=== PATIENT | male | born 1970 | race Caucasian/White ===

== ENCOUNTER 2018-01-24 10:12 | Emergency (ER) | payer BC, OTHER ==
[2018-01-24 10:36] VITALS: RESP 18
[2018-01-24] MEDS ORDERED: HYDROmorphone 1 MG/ML 1 ML SYRINGE IVP STA ×2 (11:09→13:48)
[2018-01-24] MEDS ORDERED: SODIUM CHLORIDE 0.9% 1,000 ML IV STA (11:09)
[2018-01-24] MEDS ORDERED: ONDANSETRON 4 MG/2 ML VIAL IVP STA ×2 (11:09→13:48)
--- NOTE | 2018-01-24 11:12 | ED ---
General Adult HPI - General Chief complaint: Abdominal Pain Stated complaint: abdominal pain; vomiting Time Seen by Provider: 01/24/18 10:30 Source: patient, RN notes reviewed Mode of arrival: ambulatory Limitations: no limitations - History of Present Illness Initial comments: This is a 47-year-old male who presents emergency room complaining of epigastric abdominal pain since 1:00 in the morning. Patient has been vomiting since. Patient remains nauseated. Patient denies any diarrhea. Patient states most of the pain is periumbilical. Patient denies any previous abdominal surgery he has had an inguinal hernia surgery in the past. Patient denies any chest pain difficulty breathing shortest breath per patient denies any fever chills or cough. Patient denies any back pain. Patient denies any dysuria hematuria urinary frequency. - Related Data Home Medications Medication Instructions Recorded Confirmed Albuterol Sulfate [Proair Hfa] 1 - 2 puff INHALATION RT-Q6H PRN 04/04/17 Budesonide/Formoterol Fumarate 2 puff INHALATION RT-BID 04/04/17 04/04/17 [Symbicort 160-4.5 Mcg Inhaler] Menthol [Biofreeze] 1 applic TOPICAL QID PRN 04/04/17 04/04/17 Previous Rx's Medication Instructions Recorded HYDROcodone/APAP 5-325MG [[place] 1 tab PO Q6HR PRN #20 tab 04/04/17 5-325] SILVER sulfADIAZINE Cream 1 applic TOPICAL BID #1 tub 04/04/17 [Silvadene 1% Cream] Ondansetron Odt [Zofran Odt] 4 mg PO Q8HR PRN #10 tab 01/24/18 Allergies Allergy/AdvReac Type Severity Reaction Status Date / Time No Known Allergies Allergy Verified 01/24/18 10:36 Review of Systems ROS Statement: Those systems with pertinent positive or pertinent negative responses have been documented in the HPI. ROS Other: All systems not noted in ROS Statement are negative. Past Medical History Past Medical History: Asthma History of Any Multi-Drug Resistant Organisms: None Reported Additional Past Surgical History / Comment(s): left shoulder and knee Past Psychological History: No Psychological Hx Reported Smoking Status: Never smoker Past Alcohol Use History: None Reported Past Drug Use History: None Reported General Exam - General Exam Comments Initial Comments: GENERAL: Patient is well-developed and well-nourished. Patient is nontoxic and well- hydrated and is in moderate distress. ENT: Neck is soft and supple. No significant lymphadenopathy is noted. Oropharynx is clear. Moist mucous membranes. Neck has full range of motion without eliciting any pain. EYES: The sclera were anicteric and conjunctiva were pink and moist. Extraocular movements were intact and pupils were equal round and reactive to light. Eyelids were unremarkable. PULMONARY: Unlabored respirations. Good breath sounds bilaterally. No audible rales rhonchi or wheezing was noted. CARDIOVASCULAR: There is a regular rate and rhythm without any murmurs gallops or rubs. ABDOMEN: Patient has some moderate pain to palpation just superior and to the left of the umbilicus. Patient does have an umbilical hernia which is nontender. No palpable organomegaly was noted. There is no palpable pulsatile mass. SKIN: Skin is clear with no lesions or rashes and otherwise unremarkable. NEUROLOGIC: Patient is alert and oriented x3. Cranial nerves II through XII are grossly intact. Motor and sensory are also intact. Normal speech, volume and content. Symmetrical smile. MUSCULOSKELETAL: Normal extremities with adequate strength and full range of motion. No lower extremity swelling or edema. No calf tenderness. LYMPHATICS: No significant lymphadenopathy is noted PSYCHIATRIC: Normal psychiatric evaluation. Limitations: no limitations Course Vital Signs 01/24/18 01/24/18 10:34 13:47 Temperature 98.2 F 97.6 F Pulse Rate 67 83 Respiratory 18 18 Rate Blood Pressure 192/101 205/93 O2 Sat by Pulse 96 96 Oximetry Medical Decision Making - Medical Decision Making EKG shows normal sinus rhythm at 80 bpm DE interval is on a 48 QRSs 80 QT interval 380 QTC is 447. Patient's EKG shows no ST segment elevation or depression or T wave abnormalities are noted. CT showed no acute abnormality. I went back into reevaluate the patient his abdominal pain was improved and he was no longer nauseated. - Lab Data Result diagrams: 01/24/18 11:31 01/24/18 11:31 Lab Results 01/24/18 01/24/18 01/24/18 Range/Units 11:31 11:31 11:31 WBC 12.0 H (3.8-10.6) k/uL RBC 5.49 (4.30-5.90) m/uL Hgb 17.0 (13.0-17.5) gm/dL Hct 49.2 (39.0-53.0) % MCV 89.7 (80.0-100.0) fL MCH 30.9 (25.0-35.0) pg MCHC 34.5 (31.0-37.0) g/dL RDW 13.4 (11.5-15.5) % Plt Count 340 (150-450) k/uL Neutrophils % 90 % Lymphocytes % 4 % Monocytes % 4 % Eosinophils % 1 % Basophils % 0 % Neutrophils # 10.8 H (1.3-7.7) k/uL Lymphocytes # 0.5 L (1.0-4.8) k/uL Monocytes # 0.4 (0-1.0) k/uL Eosinophils # 0.1 (0-0.7) k/uL Basophils # 0.0 (0-0.2) k/uL Sodium 140 (137-145) mmol/L Potassium 4.3 (3.5-5.1) mmol/L Chloride 102 (98-107) mmol/L Carbon Dioxide 26 (22-30) mmol/L Anion Gap 12 mmol/L BUN 20 (9-20) mg/dL Creatinine 0.67 (0.66-1.25) mg/dL Est GFR (CKD-EPI)AfAm >90 (>60 ml/min/1.73 sqM) Est GFR (CKD-EPI)NonAf >90 (>60 ml/min/1.73 sqM) Glucose 137 H (74-99) mg/dL Plasma Lactic Acid Blayne 1.1 (0.7-2.0) mmol/L Calcium 9.9 (8.4-10.2) mg/dL Total Bilirubin 1.1 (0.2-1.3) mg/dL AST 32 (17-59) U/L ALT 49 (21-72) U/L Alkaline Phosphatase 80 (38-126) U/L Total Protein 7.7 (6.3-8.2) g/dL Albumin 4.6 (3.5-5.0) g/dL Amylase 47 (30-110) U/L Lipase 27 (23-300) U/L Disposition Clinical Impression: Abdominal pain, Acute vomiting, Hypertension Disposition: HOME SELF-CARE Condition: Good Instructions: Abdominal Pain (ED), Hypertension (ED) Additional Instructions: Patient should follow-up with his primary medical care doctor for possible hypertension Patient should not take anymore NSAIDs. Prescriptions: Ondansetron Odt [Zofran Odt] 4 mg PO Q8HR PRN #10 tab PRN Reason: Nausea Is patient prescribed a controlled substance at d/c from ED?: No Referrals: Michael Cline DO [Primary Care Provider] - 1-2 days Time of Disposition: 13:33
[2018-01-24 11:42] LABS: Basophils % (A) 0 %; Eosinophils # (A) 0.1 k/uL (0-0.7); Eosinophils % (A) 1 %; HCT 49.2 % (39.0-53.0); Lymphocytes # (A) 0.5 k/uL (1.0-4.8); Lymphocytes % (A) 4 %; MCH 30.9 pg (25.0-35.0); MCHC 34.5 g/dL (31.0-37.0); MCV 89.7 fL (80.0-100.0); Mean Platelet Volume 6.7; Monocytes # (A) 0.4 k/uL (0-1.0); Monocytes % (A) 4 %; Neutrophils # (A) 10.8 k/uL (1.3-7.7); Neutrophils % (A) 90 %; Platelet Count 340 k/uL (150-450); RBC 5.49 m/uL (4.30-5.90); RDW 13.4 % (11.5-15.5)
[2018-01-24 11:56] LABS: ALT 49 U/L (21-72); AST 32 U/L (17-59); Albumin 4.6 g/dL (3.5-5.0); Alkaline Phosphatase 80 U/L (38-126); Amylase 47 U/L (30-110); Anion Gap 12 mmol/L; Blood Urea Nitrogen 20 mg/dL (9-20); Calcium 9.9 mg/dL (8.4-10.2); Carbon Dioxide 26 mmol/L (22-30); Chloride 102 mmol/L (98-107); Glucose 137 mg/dL (74-99); Lipase 27 U/L (23-300); Potassium 4.3 mmol/L (3.5-5.1); Sodium 140 mmol/L (137-145); Total Bilirubin 1.1 mg/dL (0.2-1.3); Total Protein 7.7 g/dL (6.3-8.2)
--- NOTE | 2018-01-24 12:45 | CT ---
EXAMINATION TYPE: CT abdomen pelvis w con DATE OF EXAM: 01/24/2018 REFERENCE: Previous study dated 04/15/2011. HISTORY: abdominal pain HISTORY: upper abdominal pain CT DLP: 2342.3 mGy Automated exposure control for dose reduction was used. TECHNIQUE: Helical acquisition through the abdomen and pelvis was obtained following the oral ingesti on of without Oral Contrast and following intravenous administration of 100mL mL of Isovue 300. The d beba was reformatted in axial, coronal and sagittal projections. FINDINGS: There is partially calcified 1.5 cm nodule in the lateral basal segment of the left lower lobe, best seen on image 8. This, however, was not visualized on the previous study. There is a partial eventration of the right hemidiaphragm. There is no evidence of pleural or pericar dial fluid. The heart is upper limits of normal in size. Within the abdomen, the liver is upper limits of normal in size and 18 cm. There is decreased attenua tion and may be fatty infiltrated. The spleen and gallbladder are normal. Both adrenal glands are normal. The pancreas is unremarkable. Both kidneys demonstrate function and appear morphologically normal. There is no significant retroperitoneal, iliac or inguinal adenopathy. The bladder is unremarkable. The colon is largely collapsed. This makes assessment of colonic wall thickening difficult. The appen sydnee is normal. Small bowel loops are normal caliber. There is a periumbilical hernia containing fat only with a mouth measuring 1.5 cm. There is no free fluid and no free air. There is a stable. Sclerotic focus in the left femoral head. This likely represents a bone island. Th ere is a bilateral spondylolysis at L5 with a grade 1 bordering on grade 2 spondylolisthesis of L5 on S1. This was present previously. No bony destructive lesion is seen. IMPRESSION: 1. COLLAPSE OF MOST OF THE COLON MAKING ASSESSMENT OF BOWEL WALL THICKENING DIFFICULT. PLEASE CORRELA TE TO EXCLUDE COLITIS. 2. PARTIALLY CALCIFIED PULMONARY NODULE IN THE LEFT LIKELY REPRESENTS A GRANULOMA. 3. MILD HEPATOMEGALY AND FATTY INFILTRATION OF THE LIVER. 4. PERIUMBILICAL HERNIA CONTAINING FAT ONLY WITH A MOUTH MEASURING 1.5 CM. 5. BILATERAL LYSIS AT L5 WITH A GRADE 1, BORDERING ON GRADE 2 SPONDYLOLISTHESIS OF L5 ON S1.
[2018-01-24] MEDS ORDERED: hydrALAZINE HCL 20 MG/ML 1 ML VIAL IVP STA (13:47)
[2018-01-24 13:48] VITALS: TEMP 97.6
[2018-01-24 14:14] VITALS: BP 158/75; PULSE 88
== END 2018-01-24 14:25 | disposition home or self-care (01) ==
LOC: EC 10:12
DX: R10.33 Periumbilical pain (principal); R11.10 Vomiting, unspecified; I10 Essential (primary) hypertension; J45.909 Unspecified asthma, uncomplicated; Z79.51 Long term (current) use of inhaled steroids; Z98.890 Other specified postprocedural states
CPT/HCPCS: 36415; 93005; 80053; 82150; 83605; 83690; 85025; 74177; 99284; 96374; 96375 ×2; 96376 ×2; 96361 ×2; J0360; J2405; J1170; Q9967

== ENCOUNTER → 2018-06-09 | Outpatient (CLI) | payer SELFPAY ==
--- NOTE | 2018-06-09 15:04 | XR ---
EXAMINATION TYPE: XR Hip Complete RT DATE OF EXAM: 06/09/2018 COMPARISON: NONE HISTORY: 47 year-old male right hip pain TECHNIQUE: 2 views FINDINGS: End-stage degenerative change of the right hip with complete loss of superolateral joint space, bone- on-bone articulation, subchondral sclerosis, cystic change, and marginal spurring with mild bony stu deling of the superior femoral head. No acute fracture or dislocation seen. IMPRESSION: End-stage right hip.
== END | disposition home or self-care (01) ==
LOC: RADXRYALE 11:46
PROVIDERS: ATTEND Family Medicine
DX: M25.551 Pain in right hip (principal)
CPT/HCPCS: 73502

== ENCOUNTER → 2018-09-14 | Outpatient (CLI) | payer OTHER ==
--- NOTE | 2018-09-15 11:10 | ECHOF ---
Referral Reason:R60.9 Edema, R06.02 Shortness of breath MEASUREMENTS -------- HEIGHT: 170.2 cm WEIGHT: 149.7 kg BP: IVSd: 1.8 cm (0.6 - 1.1) LVIDd: 3.1 cm (3.9 - 5.3) LVPWd: 2.0 cm (0.6 - 1.1) IVSs: 2.2 cm LVIDs: 1.8 cm LVPWs: 2.0 cm LAESV Index (A-L): 18.87 ml/m Ao Diam: 3.2 cm (2.0 - 3.7) AV Cusp: 1.9 cm (1.5 - 2.6) LA Diam: 3.6 cm (2.7 - 3.8) MV EXCURSION: 16.226 mm (> 18.000) MV EF SLOPE: 50 mm/s (70 - 150) EPSS: 0.3 cm MV E Jw: 0.93 m/s MV DecT: 223 ms MV A Jw: 0.65 m/s MV E/A Ratio: 1.43 RAP: 5.00 mmHg RVSP: 11.68 mmHg FINDINGS -------- Sinus rhythm. This was a technically adequate study. The left ventricular size is normal. There is severe concentric left ventricular hypertrophy. Ove rall left ventricular systolic function is normal with, an EF between 55 - 60 %. The right ventricle is normal in size. Normal LA size by volume 22+/-6 ml/m2. The right atrial size is normal. The aortic valve is trileaflet, and appears structurally normal. No aortic stenosis or regurgitation. There is trace mitral regurgitation. Trace tricuspid regurgitation present. The right ventricular systolic pressure, as measured by Dopp ler, is 11.68mmHg. There is no pulmonic regurgitation present. The aortic root size is normal. IVC Not well visulized. There is a trivial pericardial effusion present. CONCLUSIONS -------- 1. Sinus rhythm. 2. This was a technically adequate study. 3. The left ventricular size is normal. 4. There is severe concentric left ventricular hypertrophy. 5. Overall left ventricular systolic function is normal with, an EF between 55 - 60 %. 6. The right ventricle is normal in size. 7. Normal LA size by volume 22+/-6 ml/m2. 8. The right atrial size is normal. 9. The aortic valve is trileaflet, and appears structurally normal. No aortic stenosis or regurgitati on. 10. There is trace mitral regurgitation. 11. Trace tricuspid regurgitation present. 12. The right ventricular systolic pressure, as measured by Doppler, is 11.68mmHg. 13. There is no pulmonic regurgitation present. 14. The aortic root size is normal. 15. IVC Not well visulized. GRINDER SETUP OPERATOR: Janet Mcneil RDCS
== END | disposition home or self-care (01) ==
LOC: RADECHMAIN 14:49
PROVIDERS: ATTEND Family Medicine
DX: I51.7 Cardiomegaly (principal)
CPT/HCPCS: 93306

== ENCOUNTER → 2018-10-20 | Outpatient (CLI) | payer OTHER ==
[2018-10-20 15:31] LABS: HCT 49.5 % (39.0-53.0); HGB 16.9 gm/dL (13.0-17.5); MCH 31.5 pg (25.0-35.0); MCHC 34.1 g/dL (31.0-37.0); MCV 92.3 fL (80.0-100.0); Mean Platelet Volume 7.5; Platelet Count 323 k/uL (150-450); RBC 5.36 m/uL (4.30-5.90)
[2018-10-20 15:46] LABS: Anion Gap 13 mmol/L; Blood Urea Nitrogen 11 mg/dL (9-20); Carbon Dioxide 26 mmol/L (22-30); Chloride 98 mmol/L (98-107); Potassium 3.9 mmol/L (3.5-5.1); Sodium 137 mmol/L (137-145)
[2018-10-20 15:51] LABS: INR 0.9 (<1.2); Partial Thromboplastin Time 22.4 sec (22.0-30.0); Prothrombin Time 10.2 sec (9.0-12.0)
== END | disposition home or self-care (01) ==
LOC: LABWHC1 14:16
PROVIDERS: ATTEND Orthopaedic Surgery Hand Surgery
DX: Z01.812 Encounter for preprocedural laboratory examination (principal); M16.11 Unilateral primary osteoarthritis, right hip
CPT/HCPCS: 36415; 80051; 82565; 84520; 85027; 85610; 85730; 87070

== ENCOUNTER 2018-10-27 10:43 | Inpatient (IN) | payer BC, OTHER ==
[~2018-10-27 10:43] MED LIST: ACETAMINOPHEN TAB 500 MG TAB PO ONE; DEXAMETHASONE SOD PHOSPHATE 10 MG/ML 1 ML VIAL IV ONE; HYDROmorphone 0.5 MG/0.5 ML SYRINGE IVP PRN; LACTATED RINGERS 1,000 ML IV SCH; MELOXICAM 7.5 MG TAB PO ONE; ONDANSETRON 4 MG/2 ML VIAL IVP ONE; ROPIVACAINE 246.25 MG, EPINEPHrine 0.5 MG, KETOROLAC 30 MG, WATER FOR INJECTION,STERILE... MISCELLANE ONE; ROPIVACAINE 246.25 MG, EPINEPHrine 0.5 MG, KETOROLAC 30 MG, cloNIDine HCL/PF 80 MCG, WA... MISCELLANE ONE; SCOPOLAMINE 1.5MG/72HR PATCH TRANSDERM ONE; TRANEXAMIC ACID 1,000 MG in SODIUM CHLORIDE 0.9% 100 ML IVPB ONE; ceFAZolin 3 GM in SODIUM CHLORIDE 0.9% 100 ML IVPB ONE
[2018-10-27] MEDS ORDERED: LIDOCAINE 1% 20 ML VIAL (10MG/ML) FOR IV START INTRADERMA ONE (11:40)
[2018-10-27] MEDS ORDERED: HYDROmorphone 1 MG/ML 1 ML SYRINGE IVP PRN (12:51)
[2018-10-27] MEDS ORDERED: MAGNESIUM HYDROXIDE 2,400 MG/10 ML CUP PO PRN (12:51)
[2018-10-27] MEDS ORDERED: DIAZEPAM 5 MG TAB PO PRN (12:51)
[2018-10-27] MEDS ORDERED: NALOXONE 0.4 MG/ML 1 ML VIAL IV PRN (12:51)
[2018-10-27] MEDS ORDERED: HYDROmorphone 0.5 MG/0.5 ML SYRINGE IVP PRN ×2 (12:51)
[2018-10-27] MEDS ORDERED: HYDROcodone/APAP 5-325MG 1 EACH TAB PO PRN (12:51)
[2018-10-27] MEDS ORDERED: KETAMINE 10 MG/ML 20 ML VIAL ONE (13:08)
[2018-10-27] MEDS ORDERED: fentaNYL (PF) 50 MCG/ML 2 ML AMP ONE (13:08)
[2018-10-27] MEDS ORDERED: SODIUM CHLORIDE 0.9% 100 ML BAG ONE (13:08)
[2018-10-27] MEDS ORDERED: MIDAZOLAM 2 MG/2 ML VIAL ONE (13:08)
[2018-10-27] MEDS ORDERED: TRANEXAMIC ACID 1,000 MG/10 ML VIAL ONE (13:08)
[2018-10-27] MEDS ORDERED: ceFAZolin 3,000 MG in SODIUM CHLORIDE 0.9% IRRIGATIO 3,000 ML IRRIGATION ONE (13:47)
--- NOTE | 2018-10-27 14:58 | P.OP ---
Date of Procedure: 10/27/18 Preoperative Diagnosis: Severe osteoarthritis right hip Postoperative Diagnosis: Severe osteoarthritis right hip Procedure(s) Performed: Right total hip arthroplasty with a direct anterior approach Implants: Amador [employer] nephew Polarstem size 3 standard [employer]hew R3, 3 hole acetabular shell, 52 mm [employer]hew reflection 6.5 mm cancellus screw, 20 mm 2 [employer] R3, XLPE 20 acetabular liner [employer]hew Oxinium femoral head 36 m, +8 All components were press-fit. The articulation is Oxinium on polyethylene. Anesthesia: spinal Surgeon: Michael Trinidad Nat Instructor #1: Perri Grace Estimated Blood Loss (ml): 500 (194 mL returned with Cell Saver) Pathology: other (Femoral head) Condition: stable Disposition: PACU Indications for Procedure: After failure of conservative treatment we discussed the surgical and nonsurgical treatment options at length. Patient wishes to proceed with a total hip arthroplasty with a direct anterior approach. Complications specific to this procedure were discussed at length, including but not limited to infection, leg length discrepancy, dislocation, and nerve injury. Patient is aware of all these complications and informed consent was obtained Operative Findings: The operative findings are consistent with severe osteoarthritis of the right hip Description of Procedure: Patient was seen and evaluated in the preoperative area, consent was reviewed, and the surgical site was marked with a skin marker. Patient was then brought to the operating room and given prophylactic antibiotics intravenously. 1 g of Tranexamic acid was also given. A spinal anesthetic was administered by the anesthesia department. The patient was then placed on the [place] table with the bony prominences well-padded. The hip area was then prepped and draped in usual sterile fashion. A universal timeout was then performed, which confirmed the patient's name, surgical site, ALLERGIES, and procedure being performed. Next the incision site was located at 1 cm distal and 1 cm lateral to the anterior superior iliac spine. The skin and subcutaneous tissues were sharply incised. Incision was carefully dissected down to the fascia overlying the tensor fascia evans muscle. This fascia was then incised in line with the incision. Next, using blunt finger dissection, the tensor fascia evans muscle was dissected off its investing fascia. The muscle was then carefully retracted laterally with a cobra retractor over the lateral neck of the femur. Next, the circumflex vessels were identified and cauterized using the AquaMantis device. The anterior hip capsule was then exposed. The capsule was then opened and an inverted T fashion. Cobra retractors were then placed intracapsularly. The proximal femur was then visualized. The femoral neck was then osteotomized appropriate level above the lesser trochanter. Small amount of traction was placed with the [place] table. A small wedge of bone was then removed from the remaining femoral head. Next, using a corkscrew femoral head was easily removed from the acetabulum. On gross visual inspection, the femoral head had complete loss of articular cartilage in m ultiple periarticular osteophytes. Attention was then turned to the acetabulum. the acetabulum was exposed and any remaining labrum was excised. Sequential reaming of the acetabulum was performed using fluoroscopic guidance. When the appropriate size was reached, a trial was then placed. The position and fit of the trial was checked with fluoroscopy. The trial was then removed. Then, using fluoroscopic guidance, the final implant was impacted at 20 of anteversion and 40 of abduction, and fully seated in the acetabulum. 2 screws were then placed in the acetabulum. Again fluoroscopy was used to check position of the screws. Next, the liner was then impacted, with a 20 elevated liner located in the anterior superior quadrant. Component locking was confirmed. Attention was then directed to the femur. With the aid of the [place] table, the femur was externally rotated to approximately 130, extended, and abducted under the opposite leg. A side hook was then placed under the proximal femur, and the side hook elevator was used to elevate the proximal femur. Retractors were then placed. A capsular release was performed, as well as a release of the conjoined tendon, which afforded excellent visualization of the proximal femur. Next, a box osteotome was used to lateralize the proximal femur. A fuel handler was then used to locate the femoral canal. Sequential broaching was then performed with appropriate size which afforded excellent fixation in the proximal femur. A trial was then placed with appropriate head and neck, and the hip was gently reduced with the aid of the [place] table. Fluoroscopy was then used to check position of the components, as well as to ensure equal leg lengths. The hip was then gently dislocated and the trials were then removed. Final implants were then impacted and the hip was again reduced. Final fluoroscopic x-rays confirmed that the components were in anatomic position, as well as equal leg lengths. The hip was also taken through range of motion, and found to be stable. The hip was then copiously irrigated with antibiotic solution with pulsatile lavage. The hip was then irrigated with Irrisept solution. The soft tissues were then injected with a ropivacaine solution, which consisted of 246.25 mg of ropivacaine, 0.5 mg of epinephrine, 30 mg of Toradol, 80 g of clonidine, and 48.45 mL of sterile water, for a total of 100 mL of fluid injected. A second dose of 1 g of Tranexamic acid was also given. the fascia was then closed with 2-0 strata fix suture. The subcutaneous tissue was closed with 3-0 Vicryl. The subcuticular tissue was closed with 3-0 strata fix suture. The skin was then closed with Dermabond glue and a sterile silver dressing. The patient was then transferred to the recovery room in stable c ondition. The entry level administrative assistant SONDRA Watkins was required due to the complexity of surgery, and the need for skilled surgical aide for positioning, draping, exposure, retraction, and closure of the wound.
[2018-10-27] MEDS ORDERED: LACTATED RINGERS 1,000 ML IV ONE ×3 (15:10→16:43)
--- NOTE | 2018-10-27 15:34 | XR ---
EXAMINATION TYPE: XR Hip Limited RT, XR Hip Limited RT DATE OF EXAM: 10/27/2018 CLINICAL HISTORY: Right anterior hip arthroplasty. Fluoroscopic documentation. TECHNIQUE: Fluoroscopy. COMPARISON: None. FINDINGS: Fluoroscopic guidance was provided during procedure performed by Dr. Trinidad. A total of 1 minute and 11 seconds seconds of fluoroscopic time was utilized during the procedure and 2 spot im ages was acquired. IMPRESSION: As Above.
[2018-10-27] MEDS ORDERED: ceFAZolin 3 GM in SODIUM CHLORIDE 0.9% 100 ML IVPB SCH (16:00)
[2018-10-27 18:45] VITALS: BMI 52.4
[2018-10-27] MEDS: SODIUM CHLORIDE 0.9% 1,000 ML IV SCH (18:57)
[2018-10-27] MEDS: HYDROcodone/APAP 5-325MG 1 EACH TAB PO PRN (19:00)
[2018-10-27] MEDS: hydrOXYzine PAMOATE 25 MG CAP PO PRN (19:02)
[2018-10-27] MEDS ORDERED: SENNOSIDES-DOCUSATE SODIUM 1 EACH TAB PO SCH (21:00)
[2018-10-27] MEDS: ASPIRIN 325 MG TAB PO SCH (21:19)
[2018-10-27] MEDS: ceFAZolin 3 GM in SODIUM CHLORIDE 0.9% 100 ML IVPB SCH (21:20)
[2018-10-28] MEDS: SODIUM CHLORIDE 0.9% 1,000 ML IV SCH (04:33)
[2018-10-28] MEDS: ceFAZolin 3 GM in SODIUM CHLORIDE 0.9% 100 ML IVPB SCH (06:19)
[2018-10-28] MEDS: hydrOXYzine PAMOATE 25 MG CAP PO PRN (06:21)
[2018-10-28] MEDS: HYDROcodone/APAP 5-325MG 1 EACH TAB PO PRN (06:22)
[2018-10-28 07:27] VITALS: BP 126/72; PULSE 82; RESP 16; TEMP 97.7
--- NOTE | 2018-10-28 08:22 | P.DS ---
Providers Date of admission: 10/27/18 10:43 Expected date of discharge: 10/28/18 Attending physician: Michael Trinidad Consults: 10/27/18 12:51 Consult Physician Routine Consulting Provider: Ryan Berry Consult Reason/Comments: medical management Do you want consulting provider notified?: Yes Primary care physician: Michael Cline - Discharge Diagnosis(es) (1) Osteoarthritis of right hip Current Visit: Yes Status: Acute (2) S/P total hip arthroplasty Current Visit: Yes Status: Acute Hospital Course: This is a 48-year-old male with known history of degenerative arthritis of the right hip. The patient presents for evaluation. After discussion and consideration patient elects to proceed with total hip arthroplasty. The patient is seen preoperatively by Dr. Trinidad and medically cleared for surgery by their primary care physician. Patient is admitted to [facility] on 10/27/2089 for total hip arthroplasty. The procedures performed without complication or sequelae. The patient is doing well postoperatively. Labs and vital signs are stable on day of discharge. On day of discharge patient's hip incision is healing well. There is minimal erythema. There is no drainage noted at this time. There is minimal soft tissue swelling to the hip and thigh. Patient has full foot and ankle motion without difficulty or pain. Calf is soft and nontender to palpation. Neurovascular status to the right lower extremity is intact. Patient is discharged home in good condition. Opioid start talking form is reviewed and signed at patient bedside. Please see med rec for accurate list of home medications. Plan - Discharge Summary Discharge Rx Participant: Yes New Discharge Prescriptions: New Aspirin 325 mg PO BID #60 tab HYDROcodone/APAP 5-325MG [[place] 5-325] 1 - 2 tab PO Q6HR PRN #56 tab PRN Reason: Pain Sennosides [Senokot] 1 tab PO BID #60 tablet No Action Albuterol Sulfate [Proair Hfa] 1 - 2 puff INHALATION RT-Q6H PRN PRN Reason: Shortness Of Breath Budesonide/Formoterol Fumarate [Symbicort 160-4.5 Mcg Inhaler] 2 puff INHALATION RT-BID Phentermine HCl [Adipex-P] 37.5 mg PO DAILY PARoxetine [Paxil] 20 mg PO DAILY Losartan [Cozaar] 50 mg PO QAM traMADol HCL [Ultram] 50 mg PO Q6HR Naproxen 500 mg PO BID Discharge Medication List Albuterol Sulfate [Proair Hfa] 1 - 2 puff INHALATION RT-Q6H PRN 04/04/17 [History] Budesonide/Formoterol Fumarate [Symbicort 160-4.5 Mcg Inhaler] 2 puff INHALATION RT-BID 04/04/17 [History] Losartan [Cozaar] 50 mg PO QAM 10/21/18 [History] Naproxen 500 mg PO BID 10/21/18 [History] PARoxetine [Paxil] 20 mg PO DAILY 10/21/18 [History] Phentermine HCl [Adipex-P] 37.5 mg PO DAILY 10/21/18 [History] traMADol HCL [Ultram] 50 mg PO Q6HR 10/21/18 [History] Aspirin 325 mg PO BID #60 tab 10/28/18 [Rx] HYDROcodone/APAP 5-325MG [[place] 5-325] 1 - 2 tab PO Q6HR PRN #56 tab 10/28/18 [Rx] Sennosides [Senokot] 1 tab PO BID #60 tablet 10/28/18 [Rx] Follow up Appointment(s)/Referral(s): Michael Trinidad DO [Doctor of Osteopathic Medicine] - 2 Weeks Activity/Diet/Wound Care/Special Instructions: Weightbearing as tolerated with walker. Leave dressing intact. Dressing may be removed by home care nurse or by patient in 10 days. May shower with dressing on. Please follow-up with [facility] in 2 weeks and call with any questions or concerns, . Discharge Disposition: HOME WITH HOME HEALTH SERVICES
[2018-10-28] MEDS ORDERED: MELOXICAM 7.5 MG TAB PO SCH (09:00)
[2018-10-28] MEDS: ASPIRIN 325 MG TAB PO SCH (09:36)
[2018-10-28 09:53] LABS: Basophils % (A) 0 %; Eosinophils # (A) 0.1 k/uL (0-0.7); Eosinophils % (A) 1 %; HCT 44.5 % (39.0-53.0); Lymphocytes # (A) 1.2 k/uL (1.0-4.8); Lymphocytes % (A) 9 %; MCH 29.5 pg (25.0-35.0); MCV 95.2 fL (80.0-100.0); Mean Platelet Volume 7.4; Monocytes # (A) 0.9 k/uL (0-1.0); Monocytes % (A) 6 %; Neutrophils # (A) 11.1 k/uL (1.3-7.7); Neutrophils % (A) 83 %; Platelet Count 415 k/uL (150-450); RBC 4.67 m/uL (4.30-5.90); RDW 13.3 % (11.5-15.5); WBC 13.4 k/uL (3.8-10.6)
[2018-10-28 09:55] LABS: HGB 13.8 gm/dL (13.0-17.5)
--- NOTE | 2018-10-28 11:16 | P.CONS ---
History of Present Illness - History of Present Illness This is a pleasant 48 years old male with past medical history of asthma, deg enerative joint disease. Presents for elective right total hip arthroplasty. Patient had the surgery yesterday, today is postoperative day #1. Patient is doing well. He denies chest pain or dyspnea. No abdominal pain. No change in urine or bowel habits. His tolerating diet well. Patient is hemodynamically stable. Labs showing WBC of 13.4 K. Labs from 10/20/2018 in the system is reviewed, showing unremarkable BMP and liver enzymes, amylase or lipase. His sugar was mildly elevated was 137., Patient informed about these lab results and asked to follow-up with his PCP and he agrees Medications reviewed, currently was on aspirin 325 mg by mouth twice a day, Valium and opioids, Mobic, Senokot. Review of Systems CONSTITUTIONAL: No fever, no malaise, no fatigue. HEENT: No recent visual problems or hearing problems. Denied any sore throat. CARDIOVASCULAR: No orthopnea, PND, no palpitations, no syncope. PULMONARY: No shortness of breath, no cough, no hemoptysis. GASTROINTESTINAL: No diarrhea, no nausea, no vomiting, no abdominal pain. Normoactive bowel sounds. NEUROLOGICAL: No headaches, no weakness, no numbness. HEMATOLOGICAL: Denies any bleeding or petechiae. GENITOURINARY: Denies any burning micturition, frequency, or urgency. MUSCULOSKELETAL/RHEUMATOLOGICAL: Denies any joint pain, swelling, or any muscle pain. ENDOCRINE: Denies any polyuria or polydipsia. Past Medical History Past Medical History: Asthma History of Any Multi-Drug Resistant Organisms: None Reported Past Surgical History: Orthopedic Surgery Additional Past Surgical History / Comment(s): left shoulder and knee, ANTERIOR RIGHT HIP ARTHROPLASTY 10-27-2018 Past Anesthesia/Blood Transfusion Reactions: Motion Sickness Past Psychological History: No Psychological Hx Reported Smoking Status: Never smoker Past Alcohol Use History: None Reported Past Drug Use History: None Reported - Past Family History Mother Family Medical History: Cancer Additional Family Medical History / Comment(s): Lymphoma. Medications and Allergies Home Medications Medication Instructions Recorded Confirmed Type Albuterol Sulfate [Proair Hfa] 1 - 2 puff INHALATION RT-Q6H PRN 04/04/17 10/27/18 History Budesonide/Formoterol Fumarate 2 puff INHALATION RT-BID 04/04/17 10/27/18 History [Symbicort 160-4.5 Mcg Inhaler] Losartan [Cozaar] 50 mg PO QAM 10/21/18 10/27/18 History Naproxen 500 mg PO BID 10/21/18 10/27/18 History PARoxetine [Paxil] 20 mg PO DAILY 10/21/18 10/27/18 History Phentermine HCl [Adipex-P] 37.5 mg PO DAILY 10/21/18 10/27/18 History traMADol HCL [Ultram] 50 mg PO Q6HR 10/21/18 10/27/18 History Aspirin 325 mg PO BID #60 tab 10/28/18 Rx HYDROcodone/APAP 5-325MG [[place] 1 - 2 tab PO Q6HR PRN #56 tab 10/28/18 Rx 5-325] Sennosides [Senokot] 1 tab PO BID #60 tablet 10/28/18 Rx Allergies Allergy/AdvReac Type Severity Reaction Status Date / Time No Known Allergies Allergy Verified 10/27/18 18:28 Physical Exam Vitals: Vital Signs Temp Pulse Pulse Pulse Resp BP Pulse Ox 10/28/18 07:00 97.7 F 82 16 126/72 91 L 10/28/18 01:35 97.9 F 81 17 118/73 10/27/18 20:23 98.2 F 93 18 117/71 93 L 10/27/18 17:53 80 172/111 93 L 10/27/18 17:38 82 165/88 95 10/27/18 17:23 74 167/107 95 10/27/18 17:08 98.5 F 76 16 131/84 93 L 10/27/18 16:30 78 18 144/77 93 L 10/27/18 16:15 73 16 135/71 92 L 10/27/18 16:02 75 16 140/83 96 10/27/18 15:48 76 18 141/66 94 L 10/27/18 15:33 72 16 123/67 94 L 10/27/18 15:17 97 F L 74 17 118/69 95 10/27/18 11:17 98.0 F 95 20 164/96 95 Intake and Output 10/27/18 10/28/18 10/28/18 22:59 06:59 14:59 Intake Total 1200 1240 Balance 1200 1240 Intake: IV 1100 Intake, IV Titration 700 Amount Sodium Chloride 0.9% 1, 700 000 ml @ 70 mls/hr IV . [id number] [facility] Rx#:[id number] Oral 100 540 Other: # Voids 2 GENERAL: The patient is alert and oriented x3, not in any acute distress. Well developed, well nourished. HEENT: Pupils are round and equally reacting to light. EOMI. No scleral icterus. No conjunctival pallor. Normocephalic, atraumatic. No pharyngeal erythema. No thyromegaly. CARDIOVASCULAR: S1 and S2 present. No murmurs, rubs, or gallops. PULMONARY: Chest is clear to auscultation, no wheezing or crackles. ABDOMEN: Soft, nontender, nondistended, normoactive bowel sounds. No palpable organomegaly. MUSCULOSKELETAL: No joint swelling or deformity. EXTREMITIES: No cyanosis, clubbing, or pedal edema. NEUROLOGICAL: Gross neurological examination did not reveal any focal deficits. SKIN: No rashes. Results CBC & Chem 7: 10/28/18 09:04 Labs: Abnormal Lab Results - Last 24 Hours (Table) 10/28/18 Range/Units 09:04 WBC 13.4 H (3.8-10.6) k/uL Neutrophils # 11.1 H (1.3-7.7) k/uL Assessment and Plan Assessment: Assessment and plan -Degenerative joint disease, status post elective right total hip arthroplasty. Possible management as per the primary team. DVT prophylaxis and main management as per the primary team. Follow up with orthopedic as instructed upon discharge -Leukocytosis. No signs and symptoms of infection. This is most likely reactive. Follow-up as an outpatient -History of asthma, not an active issue - DVT and GI prophylaxis, as per primary team Patient was instructed to follow up with his PCP on the appointment date on 11/06/2018, patient was recommended to check his blood counts including what cell count with his PCP. He verbalized understanding and acceptance. Patient also informed about the appointment date and he agrees with it and said he will follow-up with both his PCP and orthopedic.
== END 2018-10-28 11:37 | disposition home health service (06) | DRG 470 ==
LOC: 2ORMAIN 10:43 → 4SSUR 16:38
PROVIDERS: ADMIT Orthopaedic Surgery; ATTEND Orthopaedic Surgery
PROC: 30233N0 Transfusion of Autologous Red Blood Cells into Peripheral Vein, Percutaneous Approach (ICD-10-PCS; 2018-10-27)
PROC: 0SR906A Replacement of Right Hip Joint with Oxidized Zirconium on Polyethylene Synthetic Substitute, Uncemented, Open Approach (ICD-10-PCS; principal; 2018-10-27 12:35)
DX: M16.11 Unilateral primary osteoarthritis, right hip (principal); Z68.43 Body mass index [BMI] 50.0-59.9, adult; I10 Essential (primary) hypertension; J45.40 Moderate persistent asthma, uncomplicated; E66.01 Morbid (severe) obesity due to excess calories; E78.2 Mixed hyperlipidemia; E29.1 Testicular hypofunction; E53.8 Deficiency of other specified B group vitamins; D72.829 Elevated white blood cell count, unspecified; Z87.891 Personal history of nicotine dependence; Z79.51 Long term (current) use of inhaled steroids; Z79.82 Long term (current) use of aspirin; Z79.899 Other long term (current) drug therapy; Z79.52 Long term (current) use of systemic steroids; Z80.7 Family history of other malignant neoplasms of lymphoid, hematopoietic and related tissues; Z83.3 Family history of diabetes mellitus
CPT/HCPCS: 73501; 85025; 86850; 86891; 86900; 86901; 88300

== ENCOUNTER → 2019-06-22 | Outpatient (CLI) | payer OTHER ==
--- NOTE | 2019-06-22 13:53 | XR ---
EXAMINATION TYPE: XR elbow complete RT DATE OF EXAM: 06/22/2019 CLINICAL HISTORY: Fall injury yesterday with pain. TECHNIQUE: Frontal, lateral and oblique images of the right elbow are obtained. COMPARISON: None FINDINGS: There is no acute fracture/dislocation evident in the right elbow. No abnormal fat pad si gns are seen. Mild to moderate spurring at the ulnohumeral articulation. Overlying clothing material with mild subcutaneous edema along the dorsal surface. IMPRESSION: There is no acute fracture or dislocation in the right elbow.
== END | disposition home or self-care (01) ==
LOC: RADXRYALE 13:31
PROVIDERS: ATTEND Physician Assistant Medical
DX: M25.521 Pain in right elbow (principal); W00.0XXA Fall on same level due to ice and snow, initial encounter

== ENCOUNTER → 2019-06-30 | Outpatient (CLI) | payer OTHER ==
--- NOTE | 2019-06-30 14:38 | XR ---
EXAMINATION TYPE: XR elbow complete RT DATE OF EXAM: 06/30/2019 CLINICAL HISTORY: Right elbow pain after fall last week TECHNIQUE: Frontal, lateral and oblique images of the brain elbow are obtained. COMPARISON: 06/22/2019a FINDINGS: There is a punctate radiopaque density at the location of the expected distal triceps tendo n. There is increasing subcutaneous/soft tissue swelling posterior to the distal humerus. No joint ef fusion is seen. Alignment of the right elbow is maintained. IMPRESSION: Punctate possible avulsion fracture of the triceps insertion. There is increasing soft ti ssue swelling over the dorsal humerus. Musculoskeletal ultrasound could assess for muscular tear/avul jose a or hematoma. Alternatively MRI could be performed.
== END | disposition home or self-care (01) ==
LOC: RADXRYALE 13:33
PROVIDERS: ATTEND Physician Assistant Medical
DX: M79.89 Other specified soft tissue disorders (principal)

== ENCOUNTER → 2020-04-03 | Outpatient (CLI) | payer OTHER ==
--- NOTE | 2020-04-03 11:00 | XR ---
EXAMINATION TYPE: XR chest 2V DATE OF EXAM: 04/03/2020 COMPARISON: Chest CT August 05, 2014. HISTORY: Cardiomegaly and shortness of breath. TECHNIQUE: Frontal and lateral views of the chest are obtained. FINDINGS: There is no new suspicious focal air space opacity, pleural effusion, or pneumothorax seen . The cardiac silhouette size remains enlarged but this is due to prominent right pericardial fat pa d when correlating with CT. There is 1.5 cm left basilar nodule overlying left apex stable from CT ax ial image 39. The osseous structures are intact. IMPRESSION: No acute cardiopulmonary process. No significant change from prior CT.
== END | disposition home or self-care (01) ==
LOC: RADXRYALE 10:14
PROVIDERS: ATTEND Physician Assistant Medical
DX: I51.7 Cardiomegaly (principal); R06.02 Shortness of breath
CPT/HCPCS: 71046

== ENCOUNTER → 2020-06-19 | Outpatient (CLI) | payer OTHER ==
--- NOTE | 2020-06-19 12:29 | XR ---
EXAMINATION TYPE: XR chest 2V DATE OF EXAM: 06/19/2020 COMPARISON: 04/03/2020 HISTORY: 49-year-old male R05, cough TECHNIQUE: Frontal and lateral views FINDINGS: Large cardiac/pericardiac silhouette redemonstrated. Mild interstitial prominence is unchanged. 2.3 c m nodule at the left base may be slightly larger. No consolidation or pleural effusion. IMPRESSION: 1. Known Morgagni hernia enlarging the cardiac silhouette. 2. Left basilar nodule estimated at 2.3 cm appears larger from prior. Contrast-enhanced CT can compar ed to the patient's prior 08/13/2014 exam.
== END | disposition home or self-care (01) ==
LOC: RADXRYALE 10:36
PROVIDERS: ATTEND Family Medicine
DX: R91.1 Solitary pulmonary nodule (principal)
CPT/HCPCS: 71046

== ENCOUNTER → 2020-06-28 | Outpatient (CLI) | payer OTHER ==
--- NOTE | 2020-06-28 15:30 | CT ---
EXAMINATION TYPE: CT chest w con DATE OF EXAM: 06/28/2020 COMPARISON: Chest CT August 05, 2014 HISTORY: SOB and pulmonary nodule. CT DLP: 381.7 mGycm. Automated Exposure Control for Dose Reduction was Utilized. TECHNIQUE: CT scan of the thorax is performed following with IV Contrast, patient injected with 100 mL of Isovue 300. FINDINGS: LUNGS: There is stable in size 1.5 cm partially calcified left basilar nodule seen best coronal image 62 when correlating with 2015 CT axial image 39. Mild to moderate right basilar linear scarring olivia ins present. Patchy areas of reticulation and increased opacity in the right upper lobe periphery cou ld reflect resolving infiltrate, similar increased groundglass opacity central inferior left upper lo be axial image 25 noted. No pleural effusion or pneumothorax seen. MEDIASTINUM: There are no greater than 1 cm hilar or mediastinal lymph nodes. No cardiomegaly or pe ricardial effusion is seen. Mild coronary artery calcification in the LAD distribution. Persistent m ore gagging type hernia seen best sagittal image 60 containing fat and tiny mesenteric vessels causin g the right-sided cardiac silhouette prominence on x-ray. OTHER: Liver diffusely low dense consistent with diffuse fatty infiltration. Slight underlying scolio tic curvature. IMPRESSION: Stable in size 1.5 cm left basilar nodule from 2015 CT is benign. Patchy opacities inferi or upper lungs bilaterally could reflect resolving infectious process less well seen on recent x-ray. No new nodules.
== END | disposition home or self-care (01) ==
LOC: RADCTMAIN 14:29
PROVIDERS: ATTEND Family Medicine
DX: R91.8 Other nonspecific abnormal finding of lung field (principal); R91.1 Solitary pulmonary nodule
CPT/HCPCS: 71260; Q9967

== ENCOUNTER → 2020-07-10 | Outpatient (CLI) | payer OTHER ==
[2020-07-10 16:28] LABS: HCT 45.5 % (39.0-53.0); HGB 15.5 gm/dL (13.0-17.5); MCH 32.7 pg (25.0-35.0); MCHC 34.1 g/dL (31.0-37.0); MCV 96.1 fL (80.0-100.0); Mean Platelet Volume 7.3; Platelet Count 273 k/uL (150-450); RBC 4.73 m/uL (4.30-5.90); RDW 14.1 % (11.5-15.5)
--- NOTE | 2020-07-10 16:34 | CT ---
EXAMINATION TYPE: CT angio chest DATE OF EXAM: 07/10/2020 COMPARISON: 06/28/2020 HISTORY: SOB, recent covid CT DLP: 686 mGycm CONTRAST: CT chest with contrast and 3D reconstruction with MIP imaging is performed with IV Contrast, patient injected with 100 mL of Isovue 370. Contrast-enhanced CT of the chest was performed through the course of the pulmonary arteries with zeinab g and mediastinal window settings submitted. 3D reconstruction with MIP imaging was also performed. PULMONARY ARTERIES: There is poor timing of the contrast bolus limiting evaluation. I do not see evid ence for a large central embolus however second, third and fourth order branches are limited in evalu ation. LUNGS: The lungs are clear and free of infiltrate. No evidence for atelectasis. No pulmonary nodule or mass is detected. No pleural effusion. Left lower lobe granuloma. MEDIASTINUM: Thoracic aorta is of normal caliber,however, evaluation is limited given timing of the contrast bolus. If there is concern for thoracic aortic pathology consider KENIA. Correlate clinicall y . The heart is not enlarged. No evidence for mediastinal mass. No mediastinal lymph nodes greater than 1cm. HILAR STRUCTURES: No evidence for mass. No hilar lymph nodes greater than 1 cm. UPPER ABDOMEN: No significant abnormality is seen. IMPRESSION: 1. There is poor timing of the contrast bolus limiting evaluation. I do not see evidence for a large central embolus however second, third and fourth order branches are limited in evaluation.
[2020-07-10 16:45] LABS: ALT 51 U/L (4-49); AST 49 U/L (17-59); African American GFR (CKD) >90 (>60 ml/min/1.73 sqM); Alkaline Phosphatase 61 U/L (38-126); Anion Gap 9 mmol/L; Blood Urea Nitrogen 12 mg/dL (9-20); Calcium 9.5 mg/dL (8.4-10.2); Carbon Dioxide 27 mmol/L (22-30); Chloride 103 mmol/L (98-107); Glucose 125 mg/dL (74-99); Non-African American GFR(CKD) >90 (>60 ml/min/1.73 sqM); Sodium 139 mmol/L (137-145); Total Bilirubin 1.4 mg/dL (0.2-1.3); Total Protein 6.9 g/dL (6.3-8.2)
[2020-07-10 16:49] LABS: Potassium 4.3 mmol/L (3.5-5.1)
== END | disposition home or self-care (01) ==
LOC: RADCTMAIN 14:39
PROVIDERS: ATTEND Internal Medicine
DX: U07.1 COVID-19 (principal); R06.00 Dyspnea, unspecified; J12.82 Pneumonia due to coronavirus disease 2019
CPT/HCPCS: 85379; 80053; 85027; 71275; 36415; Q9967

== ENCOUNTER → 2020-07-14 | Outpatient (CLI) | payer OTHER ==
--- NOTE | 2020-07-14 14:46 | XR ---
EXAMINATION TYPE: XR chest 2V DATE OF EXAM: 07/14/2020 COMPARISON: 06/19/2020 HISTORY: Chest pain TECHNIQUE: Frontal and lateral views of the chest are obtained. FINDINGS: There is no focal air space opacity. No evidence for pneumothorax. No pleural effusion. Linear atelectasis right midlung zone. The cardiac silhouette size is enlarged unchanged from prior study. The osseous structures are grossly intact. IMPRESSION: 1. No acute cardiopulmonary process.
--- NOTE | 2020-07-14 14:57 | NM ---
EXAMINATION TYPE: NM pul vent and perfuse DATE OF EXAM: 07/14/2020 COMPARISON: NONE HISTORY: R07.89 Chest pain U07.1 COVID-19 TECHNIQUE: Utilizing inhalation of 33 mCi Tc 99m DTPA aerosol and intravenous injection of 4.68 mCi of Tc 99m MAA, ventilation and perfusion images are acquired post injection in multiple projections. FINDINGS: Normal radiotracer distribution is noted in the lungs. There is no evidence of mismatched defects. IMPRESSION: Very low probability for pulmonary embolism.
== END | disposition home or self-care (01) ==
LOC: RADNMMAIN 12:56
PROVIDERS: ATTEND Family Medicine
DX: R07.89 Other chest pain (principal); U07.1 COVID-19; I51.7 Cardiomegaly; J45.40 Moderate persistent asthma, uncomplicated
CPT/HCPCS: 71046; 78582; A9540; A9567

== ENCOUNTER → 2020-07-31 | Outpatient (CLI) | payer OTHER ==
[2020-07-31 20:47] LABS: African American GFR (CKD) 115.8 (60.0-200.0); BUN/Creat Ratio 22.22 Ratio (12.00-20.00); Magnesium 1.9 mg/dL (1.5-2.4); Non-African American GFR(CKD) 99.9 (60.0-200.0); Potassium 4.1 mmol/L (3.5-5.5)
== END | disposition home or self-care (01) ==
LOC: LABWHC1 11:15
PROVIDERS: ATTEND Nurse Practitioner Adult Health
DX: I10 Essential (primary) hypertension (principal)
CPT/HCPCS: 36415; 80048; 83735

== ENCOUNTER 2020-10-02 18:59 | Observation (INO) | payer OTHER ==
[2020-10-02 19:08] VITALS: TEMP 98.5
[2020-10-02] MEDS ORDERED: SODIUM CHLORIDE 0.9% 2,000 ML IV ONE (19:45)
[2020-10-02 20:08] LABS: Basophils # (A) 0.1 k/uL (0-0.2); Basophils % (A) 1 %; Eosinophils # (A) 0.3 k/uL (0-0.7); Eosinophils % (A) 2 %; Lymphocytes # (A) 1.8 k/uL (1.0-4.8); Lymphocytes % (A) 13 %; MCH 33.4 pg (25.0-35.0); MCHC 35.4 g/dL (31.0-37.0); MCV 94.4 fL (80.0-100.0); Monocytes # (A) 1.1 k/uL (0-1.0); Monocytes % (A) 8 %; Neutrophils % (A) 75 %; Platelet Count 422 k/uL (150-450); RBC 5.08 m/uL (4.30-5.90); WBC 14.6 k/uL (3.8-10.6)
[2020-10-02 20:18] LABS: Albumin 4.4 g/dL (3.5-5.0); Potassium 3.6 mmol/L (3.5-5.1); Total Protein 7.2 g/dL (6.3-8.2)
[2020-10-02 20:28] LABS: D-Dimer 0.48 mg/L FEU (<0.60); INR 0.9 (<1.2); Partial Thromboplastin Time 22.2 sec (22.0-30.0); Prothrombin Time 10.2 sec (9.0-12.0)
--- NOTE | 2020-10-02 20:58 | XR ---
EXAMINATION TYPE: XR chest 2V DATE OF EXAM: 10/02/2020 COMPARISON: 07/14/2020. HISTORY: Weakness. TECHNIQUE: Frontal and lateral views of the chest are obtained. FINDINGS: There is mild interstitial prominence. No focal air space opacity, pleural effusion, or pn eumothorax seen. Stable marked cardiomegaly. The osseous structures are intact. IMPRESSION: Suggestion of mild CHF.
[2020-10-02 21:28] LABS: T4, Free (Free Thyroxine) 1.35 ng/dL (0.78-2.19)
[2020-10-02] MEDS ORDERED: SODIUM CHLORIDE 0.9% 1,000 ML IV ONE (21:50)
[2020-10-02] MEDS ORDERED: NALOXONE 0.4 MG/ML 1 ML VIAL IV PRN (22:43)
--- NOTE | 2020-10-02 22:43 | ED ---
General Adult HPI - General Chief complaint: Recheck/Abnormal Lab/Rx Stated complaint: Hypotension, Dehydration Time Seen by Provider: 10/02/20 19:00 Source: patient Mode of arrival: ambulatory Limitations: no limitations - History of Present Illness Initial comments: 50-year-old male with past nuchal history of peripheral edema who presents emergency Department with reported lightheadedness. He states that he has felt like this for the past month. He has struggled with peripheral edema since his hip surgery 2 years ago. Reports that after the surgery they did place him on Lasix. He has had multiple evaluations for DVT which were all negative. Recently the swelling became worse again and therefore he did go back on his regiment of Lasix and metolazone. After initiation of the medications the patient has had dizziness. Reports that the swelling has improved. Denies chest pain or shortness of breath. No abdominal pain. Patient continues to make urine. Denies any changes in his bowel habits to include diarrhea, melanic stools or hematochezia. Patient normally states that he has high blood pressure and takes losartan. He saw his primary care physician today because of his symptoms of lightheadedness and was found to have low blood pressure. He was therefore sent to the emergency room for evaluation. - Related Data Home Medications Medication Instructions Recorded Confirmed Albuterol Sulfate [Proair Hfa] 1 - 2 puff INHALATION RT-Q6H PRN 04/04/17 10/02/20 Budesonide/Formoterol Fumarate 2 puff INHALATION RT-BID 04/04/17 10/02/20 [Symbicort 160-4.5 Mcg Inhaler] Losartan [Cozaar] 50 mg PO QAM 10/21/18 10/02/20 Albuterol Nebulized [Ventolin 2.5 mg INHALATION RT-Q4H PRN 10/02/20 10/02/20 Nebulized] Furosemide [Lasix] 40 mg PO DAILY@1700 10/02/20 10/02/20 Furosemide [Lasix] 80 mg PO DAILY@0900 10/02/20 10/02/20 Ibuprofen [Motrin Ib] 800 mg PO Q8H PRN 10/02/20 10/02/20 metOLazone [Zaroxolyn] 5 mg PO BID 10/02/20 10/02/20 Allergies Allergy/AdvReac Type Severity Reaction Status Date / Time No Known Allergies Allergy Verified 10/02/20 20:42 Review of Systems ROS Statement: Those systems with pertinent positive or pertinent negative responses have been documented in the HPI. ROS Other: All systems not noted in ROS Statement are negative. Past Medical History Past Medical History: Asthma History of Any Multi-Drug Resistant Organisms: None Reported Past Surgical History: Orthopedic Surgery Additional Past Surgical History / Comment(s): left shoulder and knee, ANTERIOR RIGHT HIP ARTHROPLASTY 10-27-2018 Past Anesthesia/Blood Transfusion Reactions: Motion Sickness Past Psychological History: No Psychological Hx Reported Smoking Status: Former smoker Past Alcohol Use History: Occasional Past Drug Use History: None Reported - Past Family History Mother Family Medical History: Cancer Additional Family Medical History / Comment(s): Lymphoma. General Exam Limitations: no limitations General appearance: alert, in no apparent distress Head exam: Present: atraumatic, normocephalic, normal inspection Eye exam: Present: normal appearance, PERRL, EOMI. Absent: scleral icterus, conjunctival injection, periorbital swelling ENT exam: Present: normal exam, mucous membranes moist Neck exam: Present: normal inspection. Absent: tenderness, meningismus, lymphadenopathy Respiratory exam: Present: normal lung sounds bilaterally. Absent: respiratory distress, wheezes, rales, rhonchi, stridor Cardiovascular Exam: Present: regular rate, normal rhythm, normal heart sounds. Absent: systolic murmur, diastolic murmur, rubs, gallop, clicks GI/Abdominal exam: Present: soft, normal bowel sounds. Absent: distended, tenderness, guarding, rebound, rigid Extremities exam: Present: normal inspection, full ROM, normal capillary refill. Absent: tenderness, pedal edema, joint swelling, calf tenderness Back exam: Present: normal inspection Neurological exam: Present: alert, oriented X3, CN II-XII intact Psychiatric exam: Present: normal affect, normal mood Skin exam: Present: warm, dry, intact, normal color. Absent: rash Course Vital Signs 10/02/20 10/02/20 10/02/20 19:01 20:25 22:00 Temperature 98.5 F Pulse Rate 102 H 90 91 Respiratory 20 18 18 Rate Blood Pressure 87/54 69/36 71/48 O2 Sat by Pulse 97 99 98 Oximetry 10/02/20 10/02/20 10/02/20 23:00 23:24 23:41 Temperature Pulse Rate 79 84 84 Respiratory 17 17 16 Rate Blood Pressure 85/47 90/50 83/51 O2 Sat by Pulse 100 99 98 Oximetry 10/02/20 10/03/20 10/03/20 23:54 00:00 00:01 Temperature Pulse Rate 82 83 80 Respiratory 15 15 18 Rate Blood Pressure 103/57 99/64 99/64 O2 Sat by Pulse 100 98 99 Oximetry 10/03/20 10/03/20 10/03/20 00:20 00:48 01:00 Temperature Pulse Rate 85 84 79 Respiratory 16 16 16 Rate Blood Pressure 96/58 107/63 115/74 O2 Sat by Pulse 99 97 Oximetry 10/03/20 01:30 Temperature Pulse Rate 82 Respiratory 16 Rate Blood Pressure 119/70 O2 Sat by Pulse 98 Oximetry EKG Findings - EKG Comments: EKG Findings:: EKG demonstrates a sinus rhythm with a ventricular rate of 91. SD interval 148. QRS 88. QTC of 548. No acute ST segment elevations or depressions Medical Decision Making - Medical Decision Making Upon arrival patient was placed into room 6. Thorough history and physical exam was performed. Patient does have extremely low blood pressure upon arrival. Because of this IV was established and the patient was given a 2 L bolus of normal saline. Laboratory studies are conducted. Creatinine is 2.8 while lactic acid is 4.2. Patient does have elevation in his AST and ALT. CK is 703. A third liter of fluid is ordered on the patient followed by 150 mL per hour. Due to the patient's acute kidney injury did recommend hospitalization for which the patient did agree to. He does have improvement in his blood pressures at this time. I we will hold all of his diuretics and nephrotoxic agents. I spoke with Dr. groves who agreed to admit the patient. Patient continued to mentate appropriately. He is currently awaiting a bed on the floor - Lab Data Result diagrams: 10/02/20 20:02 10/02/20 20:02 Lab Results 10/02/20 10/02/20 10/02/20 Range/Units 20:02 20:02 20:02 WBC 14.6 H (3.8-10.6) k/uL RBC 5.08 (4.30-5.90) m/uL Hgb 17.0 (13.0-17.5) gm/dL Hct 48.0 (39.0-53.0) % MCV 94.4 (80.0-100.0) fL MCH 33.4 (25.0-35.0) pg MCHC 35.4 (31.0-37.0) g/dL RDW 14.0 (11.5-15.5) % Plt Count 422 (150-450) k/uL MPV 7.0 Neutrophils % 75 % Lymphocytes % 13 % Monocytes % 8 % Eosinophils % 2 % Basophils % 1 % Neutrophils # 11.0 H (1.3-7.7) k/uL Lymphocytes # 1.8 (1.0-4.8) k/uL Monocytes # 1.1 H (0-1.0) k/uL Eosinophils # 0.3 (0-0.7) k/uL Basophils # 0.1 (0-0.2) k/uL PT 10.2 (9.0-12.0) sec INR 0.9 (<1.2) APTT 22.2 (22.0-30.0) sec D-Dimer 0.48 (<0.60) mg/L FEU Sodium 134 L (137-145) mmol/L Potassium 3.6 (3.5-5.1) mmol/L Chloride 86 L (98-107) mmol/L Carbon Dioxide 33 H (22-30) mmol/L Anion Gap 15 mmol/L BUN 24 H (9-20) mg/dL Creatinine 2.86 H (0.66-1.25) mg/dL Est GFR (CKD-EPI)AfAm 28 (>60 ml/min/1.73 sqM) Est GFR (CKD-EPI)NonAf 25 (>60 ml/min/1.73 sqM) Glucose 140 H (74-99) mg/dL Lactic Ac Sepsis Rflx Plasma Lactic Acid Blayne (0.7-2.0) mmol/L Calcium 10.0 (8.4-10.2) mg/dL Total Bilirubin 1.0 (0.2-1.3) mg/dL AST 70 H (17-59) U/L ALT 58 H (4-49) U/L Alkaline Phosphatase 67 (38-126) U/L Creatine Kinase 703 H (55-170) U/L Troponin I (0.000-0.034) ng/mL NT-Pro-B Natriuret Pep pg/mL Total Protein 7.2 (6.3-8.2) g/dL Albumin 4.4 (3.5-5.0) g/dL TSH 6.610 H (0.465-4.680) mIU/L Free T4 1.35 (0.78-2.19) ng/dL 10/02/20 10/02/20 10/02/20 Range/Units 20:02 20:02 20:02 WBC (3.8-10.6) k/uL RBC (4.30-5.90) m/uL Hgb (13.0-17.5) gm/dL Hct (39.0-53.0) % MCV (80.0-100.0) fL MCH (25.0-35.0) pg MCHC (31.0-37.0) g/dL RDW (11.5-15.5) % Plt Count (150-450) k/uL MPV Neutrophils % % Lymphocytes % % Monocytes % % Eosinophils % % Basophils % % Neutrophils # (1.3-7.7) k/uL Lymphocytes # (1.0-4.8) k/uL Monocytes # (0-1.0) k/uL Eosinophils # (0-0.7) k/uL Basophils # (0-0.2) k/uL PT (9.0-12.0) sec INR (<1.2) APTT (22.0-30.0) sec D-Dimer (<0.60) mg/L FEU Sodium (137-145) mmol/L Potassium (3.5-5.1) mmol/L Chloride (98-107) mmol/L Carbon Dioxide (22-30) mmol/L Anion Gap mmol/L BUN (9-20) mg/dL Creatinine (0.66-1.25) mg/dL Est GFR (CKD-EPI)AfAm (>60 ml/min/1.73 sqM) Est GFR (CKD-EPI)NonAf (>60 ml/min/1.73 sqM) Glucose (74-99) mg/dL Lactic Ac Sepsis Rflx Plasma Lactic Acid Blayne 4.2 H* (0.7-2.0) mmol/L Calcium (8.4-10.2) mg/dL Total Bilirubin (0.2-1.3) mg/dL AST (17-59) U/L ALT (4-49) U/L Alkaline Phosphatase (38-126) U/L Creatine Kinase (55-170) U/L Troponin I 0.016 (0.000-0.034) ng/mL NT-Pro-B Natriuret Pep 230 pg/mL Total Protein (6.3-8.2) g/dL Albumin (3.5-5.0) g/dL TSH (0.465-4.680) mIU/L Free T4 (0.78-2.19) ng/dL 10/02/20 Range/Units 20:23 WBC (3.8-10.6) k/uL RBC (4.30-5.90) m/uL Hgb (13.0-17.5) gm/dL Hct (39.0-53.0) % MCV (80.0-100.0) fL MCH (25.0-35.0) pg MCHC (31.0-37.0) g/dL RDW (11.5-15.5) % Plt Count (150-450) k/uL MPV Neutrophils % % Lymphocytes % % Monocytes % % Eosinophils % % Basophils % % Neutrophils # (1.3-7.7) k/uL Lymphocytes # (1.0-4.8) k/uL Monocytes # (0-1.0) k/uL Eosinophils # (0-0.7) k/uL Basophils # (0-0.2) k/uL PT (9.0-12.0) sec INR (<1.2) APTT (22.0-30.0) sec D-Dimer (<0.60) mg/L FEU Sodium (137-145) mmol/L Potassium (3.5-5.1) mmol/L Chloride (98-107) mmol/L Carbon Dioxide (22-30) mmol/L Anion Gap mmol/L BUN (9-20) mg/dL Creatinine (0.66-1.25) mg/dL Est GFR (CKD-EPI)AfAm (>60 ml/min/1.73 sqM) Est GFR (CKD-EPI)NonAf (>60 ml/min/1.73 sqM) Glucose (74-99) mg/dL Lactic Ac Sepsis Rflx Y Plasma Lactic Acid Blayne (0.7-2.0) mmol/L Calcium (8.4-10.2) mg/dL Total Bilirubin (0.2-1.3) mg/dL AST (17-59) U/L ALT (4-49) U/L Alkaline Phosphatase (38-126) U/L Creatine Kinase (55-170) U/L Troponin I (0.000-0.034) ng/mL NT-Pro-B Natriuret Pep pg/mL Total Protein (6.3-8.2) g/dL Albumin (3.5-5.0) g/dL TSH (0.465-4.680) mIU/L Free T4 (0.78-2.19) ng/dL Disposition Clinical Impression: Hypotension, Pre-syncope, MEHREEN (acute kidney injury) Disposition: ADMITTED IP TO THIS [facility] Condition: Serious Is patient prescribed a controlled substance at d/c from ED?: No Decision to Admit Reason: Admit from EC Decision Date: 10/02/20 Decision Time: 22:43
[2020-10-02] MEDS ORDERED: SODIUM CHLORIDE 0.9% 1,000 ML IV SCH (22:45)
[2020-10-03 00:30] VITALS: RESP 16
[2020-10-03 01:31] VITALS: BP 119/70; PULSE 82
--- NOTE | 2020-10-16 12:14 | P.HPIM ---
History of Present Illness Please consider this note as combined HLP and discharge summary, please note patient left AMA Patient was admitted through emergency room for hypotension, presyncope, MEHREEN per emergency room note Patient decided to leave AMA shortly after arriving to the medical floor because he wanted his family to stay with him in the room against hospital policy. Please refer to nurses notes for more details Patient left hospital signing AMA before medical team had a chance to meet him or talk to him. Past Medical History Past Medical History: Asthma History of Any Multi-Drug Resistant Organisms: None Reported Past Surgical History: Orthopedic Surgery Additional Past Surgical History / Comment(s): left shoulder and knee, ANTERIOR RIGHT HIP ARTHROPLASTY 10-27-2018 Past Anesthesia/Blood Transfusion Reactions: Motion Sickness Past Psychological History: No Psychological Hx Reported Smoking Status: Former smoker Past Alcohol Use History: Occasional Past Drug Use History: None Reported - Past Family History Mother Family Medical History: Cancer Additional Family Medical History / Comment(s): Lymphoma. Medications and Allergies Home Medications Medication Instructions Recorded Confirmed Type Albuterol Sulfate [Proair Hfa] 1 - 2 puff INHALATION RT-Q6H PRN 04/04/17 10/02/20 History Budesonide/Formoterol Fumarate 2 puff INHALATION RT-BID 04/04/17 10/02/20 History [Symbicort 160-4.5 Mcg Inhaler] Losartan [Cozaar] 50 mg PO QAM 10/21/18 10/02/20 History Albuterol Nebulized [Ventolin 2.5 mg INHALATION RT-Q4H PRN 10/02/20 10/02/20 History Nebulized] Furosemide [Lasix] 40 mg PO DAILY@1700 10/02/20 10/02/20 History Furosemide [Lasix] 80 mg PO DAILY@0900 10/02/20 10/02/20 History Ibuprofen [Motrin Ib] 800 mg PO Q8H PRN 10/02/20 10/02/20 History metOLazone [Zaroxolyn] 5 mg PO BID 10/02/20 10/02/20 History Allergies Allergy/AdvReac Type Severity Reaction Status Date / Time No Known Allergies Allergy Verified 10/02/20 20:42 Results CBC & Chem 7: 10/02/20 20:02 10/02/20 20:02
== END 2020-10-03 03:00 | disposition left against medical advice (07) ==
LOC: EC 18:59 → 3SCARD 22:44
PROVIDERS: ADMIT Internal Medicine; ATTEND Internal Medicine
DX: I95.9 Hypotension, unspecified (principal); N17.9 Acute kidney failure, unspecified; J45.909 Unspecified asthma, uncomplicated; I10 Essential (primary) hypertension; R60.0 Localized edema; Z20.822 Contact with and (suspected) exposure to COVID-19; Z79.51 Long term (current) use of inhaled steroids; Z79.899 Other long term (current) drug therapy; Z96.641 Presence of right artificial hip joint; Z98.890 Other specified postprocedural states; Z87.891 Personal history of nicotine dependence; Z80.7 Family history of other malignant neoplasms of lymphoid, hematopoietic and related tissues; Z53.29 Procedure and treatment not carried out because of patient's decision for other reasons
CPT/HCPCS: 96360; 96361; 99285; 36415 ×2; 93005; 85379; 84439; 83880; 80053; 84443; 82550; 83605; 84484; 85025; 85610; 85730; 87636; 71046; G0378

== ENCOUNTER → 2021-01-16 | Outpatient (CLI) | payer OTHER ==
--- NOTE | 2021-01-17 09:53 | XR ---
EXAMINATION TYPE: XR finger RT DATE OF EXAM: 01/16/2021 CLINICAL HISTORY: pain TECHNIQUE: 2 views of the right first digit are submitted. COMPARISON: None FINDINGS: There is subluxation noted at the first metacarpal phalangeal joint. No fracture seen. IMPRESSION: As above
== END | disposition home or self-care (01) ==
LOC: RADXRYALE 16:31
PROVIDERS: ATTEND Family Medicine
DX: M79.641 Pain in right hand (principal)

== ENCOUNTER 2021-03-14 17:14 | Emergency (ER) | payer OTHER ==
[2021-03-14 18:34] VITALS: BP 167/81; PULSE 94; RESP 20; TEMP 98
== END 2021-03-14 19:42 | disposition home or self-care (01) ==
LOC: EC 17:14
DX: Z02.89 Encounter for other administrative examinations (principal)
CPT/HCPCS: 99499

== ENCOUNTER 2021-07-18 09:09 | Day surgery (SDC) | payer OTHER ==
--- NOTE | 2021-07-16 12:34 | P.HPOR ---
History of Present Illness H&P Date: 07/16/21 Chief Complaint: Right thumb MP joint arthritis/joint instability Subjective: This is a 50 year old male with a past medical history of asthma and super morbid obesity that presents today for follow up evaluation regarding a right thumb injury that occurred at the beginning of December 2020. 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 He was initially treated conservatively with immobilization but notes continue pain and instability and weakness with pinch since the injury. Despite immobilization he is still having symptoms that are not improving, he denies any paresthesias. He recently had an MRI that was limited due to artifact. Physical Examination: RUE: AIN/PIN/Radial/Ulnar/Median motor intact. Radial/Ulnar/Median SILT. 2+/4 Radial/Ulnar pulses palpated.Mild laxity with stress to thumb UCL but with appreciable and firm end point. RCL mildly TTP. NTTP over A1 fuentes of right thumb. Pt able to oppose thumb to small finger. Imaging: X-Rays of the right hand taken from 04/23/2021 were reviewed and reveal volar and ulnar subluxation of the thumb MCP joint. Moderate arthritic changes at the thumb MP joint. MRI of the right hand demonstrates moderate arthritic changes at the thumb MP joint with rodri edema. Remainder of detailed ligamentous anatomy limited due to artifact. Impression: 1.)Right thumb MP joint instability/arthritis. Plan: Diagnosis and treatment options were discussed with the patient. MRI findings are consistent with moderate arthritic changes and joint subluxation at the thumb MP joint. He is still severely symptomatic at the thumb MP joint and due to arthritic changes would not be a candidate for ligamentous reconstruction and we discussed thumb MP joint arthrodesis with bone grafting. Risks and benefit of surgery including bleeding, infection, damage to surrounding tissue, need for further surgery, nonunion, continued pain and limited ROM expected from arthrodesis were discussed and the patient wished to go forward with surgery. He has obtained pre-op clearance recently and will be scheduled for surgery in the near future. -Cameron Jaimes DO Orthopedic Hand/Upper Extremity Surgeon Past Medical History Past Medical History: Asthma History of Any Multi-Drug Resistant Organisms: None Reported Past Surgical History: Orthopedic Surgery Additional Past Surgical History / Comment(s): left shoulder and knee, ANTERIOR RIGHT HIP ARTHROPLASTY 10-27-2018 Past Anesthesia/Blood Transfusion Reactions: Motion Sickness Past Psychological History: No Psychological Hx Reported Smoking Status: Former smoker Past Alcohol Use History: None Reported Past Drug Use History: None Reported - Past Family History Mother Family Medical History: Cancer Additional Family Medical History / Comment(s): Lymphoma. Medications and Allergies Home Medications Medication Instructions Recorded Confirmed Type Albuterol Sulfate [Proair Hfa] 1 - 2 puff INHALATION RT-Q6H PRN 04/04/17 10/02/20 History Budesonide/Formoterol Fumarate 2 puff INHALATION RT-BID 04/04/17 10/02/20 History [Symbicort 160-4.5 Mcg Inhaler] Losartan [Cozaar] 50 mg PO QAM 10/21/18 10/02/20 History Albuterol Nebulized [Ventolin 2.5 mg INHALATION RT-Q4H PRN 10/02/20 10/02/20 History Nebulized] Furosemide [Lasix] 40 mg PO DAILY@1700 10/02/20 10/02/20 History Furosemide [Lasix] 80 mg PO DAILY@0900 10/02/20 10/02/20 History Ibuprofen [Motrin Ib] 800 mg PO Q8H PRN 10/02/20 10/02/20 History metOLazone [Zaroxolyn] 5 mg PO BID 10/02/20 10/02/20 History Allergies Allergy/AdvReac Type Severity Reaction Status Date / Time No Known Allergies Allergy Verified 03/14/21 18:31 Physical Examination Osteopathic Statement: *. No significant issues noted on an osteopathic structural exam other than those noted in the History and Physical/Consult.
[2021-07-16 13:51] VITALS: BMI 50.7
[~2021-07-18 09:09] MED LIST changes: -ACETAMINOPHEN TAB 500 MG TAB PO ONE; -DEXAMETHASONE SOD PHOSPHATE 10 MG/ML 1 ML VIAL IV ONE; -HYDROmorphone 0.5 MG/0.5 ML SYRINGE IVP PRN; -LACTATED RINGERS 1,000 ML IV SCH; -MELOXICAM 7.5 MG TAB PO ONE; -ONDANSETRON 4 MG/2 ML VIAL IVP ONE; -ROPIVACAINE 246.25 MG, EPINEPHrine 0.5 MG, KETOROLAC 30 MG, WATER FOR INJECTION,STERILE... MISCELLANE ONE; -ROPIVACAINE 246.25 MG, EPINEPHrine 0.5 MG, KETOROLAC 30 MG, cloNIDine HCL/PF 80 MCG, WA... MISCELLANE ONE; -SCOPOLAMINE 1.5MG/72HR PATCH TRANSDERM ONE; -TRANEXAMIC ACID 1,000 MG in SODIUM CHLORIDE 0.9% 100 ML IVPB ONE; -ceFAZolin 3 GM in SODIUM CHLORIDE 0.9% 100 ML IVPB ONE; +ceFAZolin 3 GM in SODIUM CHLORIDE 0.9% 100 ML IVPB PRN
[2021-07-18] MEDS ORDERED: ONDANSETRON 4 MG/2 ML VIAL ONE (09:52)
[2021-07-18 09:55] VITALS: TEMP 98
[2021-07-18] MEDS ORDERED: LACTATED RINGERS 1,000 ML IV ONE (10:01)
[2021-07-18] MEDS ORDERED: ONDANSETRON 4 MG/2 ML VIAL IVP ONE (10:01)
[2021-07-18] MEDS ORDERED: DEXAMETHASONE SOD PHOSPHATE 4 MG/ML 1 ML VIAL IV ONE (10:02)
[2021-07-18] MEDS ORDERED: fentaNYL (PF) 50 MCG/ML 2 ML AMP IV ONE (10:14)
[2021-07-18] MEDS ORDERED: MIDAZOLAM 2 MG/2 ML VIAL IV ONE (10:14)
--- NOTE | 2021-07-18 10:25 | P.ANPRN ---
Procedure Note - Anesthesia - Nerve Block Performed Right Supraclavicular Single Time Out Performed: Yes Date of Procedure: 07/18/21 Procedure Start Time: : Procedure Stop Time: Location of Patient: PreOp Indication: Requested by Surgeon Specifically requested for management of pain by DrLiliam: Cameron Jaimes Sedation Type: Sedate with meaningful contact maintained Preparation: Sterile Prep Position: Supine Needle Types: Pajunk Needle Gauge: 21 Ultrasound used to visualize needle placement: Yes Ultrasound used to observe medication spread: Yes Injectate: 0.5% Ropivacaine (see comment for volume) (25 ML +4MG DEXAMETHASON) Blood Aspirated: No Pain Paresthesia on Injection Noted: No Resistance on Injection: Normal Image Stored and Saved: Yes Events: Uneventful and Well Tolerated
[2021-07-18] MEDS ORDERED: SUCCINYLCHOLINE CHLORIDE VIAL 200 MG/10 ML VIAL IV ONE (10:45)
[2021-07-18] MEDS ORDERED: MIDAZOLAM 2 MG/2 ML VIAL ONE (10:45)
[2021-07-18] MEDS ORDERED: fentaNYL (PF) 50 MCG/ML 2 ML AMP ONE (10:45)
[2021-07-18] MEDS ORDERED: PROPOFOL 10 MG/ML 20 ML VIAL IV ONE (10:45)
[2021-07-18] MEDS ORDERED: DEXAMETHASONE SOD PHOSPHATE 4 MG/ML 1 ML VIAL ONE (10:45)
[2021-07-18] MEDS ORDERED: ROPIVACAINE 5 MG/ML 30 ML VIAL ONE (10:45)
[2021-07-18] MEDS ORDERED: ALBUTEROL HFA INHALER INHALATION ONE (10:45)
[2021-07-18] MEDS ORDERED: LIDOCAINE 1% INJ 10MG/ML (20 ML MDV) ONE (10:45)
[2021-07-18] MEDS ORDERED: BUPIVACAINE (PF) 0.5% 30 ML VIAL SQ ONE (11:05)
[2021-07-18] MEDS ORDERED: LIDOCAINE 1% INJ 10MG/ML (20 ML MDV) SQ ONE (11:05)
[2021-07-18 13:00] VITALS: RESP 20
[2021-07-18] MEDS ORDERED: LABETALOL SYRINGE 5 MG/ML IVP ONE (13:25)
[2021-07-18 14:13] VITALS: BP 165/85; PULSE 78
--- NOTE | 2021-07-18 15:19 | P.OP ---
Date of Procedure: 07/18/21 Preoperative Diagnosis: Right thumb MP joint arthritis Postoperative Diagnosis: Right thumb MP joint arthritis Procedure(s) Performed: Right thumb MP joint arthrodesis with autograft bone grafting. Implants: Accutrak 2 headless compression screw, Standard, 34mm. Anesthesia: GETA, [facility] Surgeon: Cameron Jaimes Supervisor [employer]er [employer] #1: Masoud Fu Estimated Blood Loss (ml): 5 Pathology: none sent Condition: stable Disposition: PACU Description of Procedure: A longitudinal incision was made overlying the right thumb MP joint with a 15 blade scalpel. Blunt dissection was then taken down through soft tissues, taking care to protect the sensory branches of the radial nerve which were identified and protected with Ragnell retractors. The interval between the extensor pollicis brevis and extensor pollicis longus tendon at the level of the MP joint was then identified and sharply incised with a 15 blade scalpel to unveil the right thumb MCP joint capsule. Capsule was incised longitudinally with a 15 blade scalpel down to bone. Collateral ligaments were then identified, the ulnar collateral ligament appeared to be intact and this was released sharply off its origin at the metacarpal head recess. The radial collateral ligament was identified and this was completely torn off its origin at the metacarpal phalangeal recess, the ligament was incised distally to remove it in its entirety. Direct visualization of the joint surface of the thumb MP joint revealed advanced arthritic changes of both the metacarpal head and proximal phalanx base, therefore, decision was made to proceed with arthrodesis. Rongeur and curette was utilized to create a rounded edge of the metacarpal head and to remove all remaining cartilage and subchondral bone until the complete articular surface was exposed to bleeding cancellus bone. Same was done for the proximal phalanx base but shaping consisted of a cone, rongeur and curette was used to remove sclerotic bone and remaining cartilage until bleeding cancellous bone was appreciated, viable bone was collected for later grafting at the arthrodesis site. Satisfied with the bone preparation of both surfaces. A guidewire was then inserted retrogradely at the center of the metacarpal head aimed dorsal and advanced until perforating the dorsal cortex of the metacarpal, taking care to be center center in the bone. The guidewire was then advanced proximally and then advanced distally after the MP joint was held and compressed in approximately 20 of flexion. The K wire was then advanced into the volar cortex of the proximal phalanx. Guidewire placement was then confirmed on live intraoperative fluoroscopy confirming acceptable overall alignment with a 20 flexion angle at the MCP joint and acceptable intramedullary placement in the radial and ulnar planes. Previously harvested bone autograft was then packed into the arthrodesis site. Opening drill was then utilized to open the dorsal cortex of the metacarpal bone until the positive stop engaged. A 34 mm standard size Acutrak 2 headless compression screw was then inserted under hand power over the guidewire until the head of the screw was nearly completely flush with the dorsal cortex, and good bite was appreciated and compression across the joint was achieved. Final fluoroscopic images were obtained in AP and lateral views revealed intramedullary screw positioning with the thumb MP joint held in 20 of flexion and good compression across the arthrodesis site. The wound was then copiously irrigated. Capsular closure was performed with 4-0 Monocryl suture followed by interrupted 4-0 Monocryl subcutaneous sutures followed by 4-0 nylon running suture on skin. Patient was then placed in a sterile dressing consisting of Adaptic, 4 x 4's, cast padding and a thumb spica splint. Tourniquet was let down and all digits had immediate perfusion. The patient was then awoken by the Department of anesthesia and transferred to PACU in stable condition. Masoud AMARO was present for the case in it's entirety due to the need for skilled assistance and protection of neurovascular structures and assistance in placing hardware. -Cameron Jaimes DO Orthopedic hand/upper extremity surgeon
== END 2021-07-18 14:28 | disposition home or self-care (01) ==
LOC: OR 09:09
PROVIDERS: ATTEND Orthopaedic Surgery Hand Surgery
DX: M18.11 Unilateral primary osteoarthritis of first carpometacarpal joint, right hand (principal); M25.341 Other instability, right hand; E66.01 Morbid (severe) obesity due to excess calories; Z68.42 Body mass index [BMI] 45.0-49.9, adult; J45.909 Unspecified asthma, uncomplicated; Z96.641 Presence of right artificial hip joint; Z98.890 Other specified postprocedural states; Z87.891 Personal history of nicotine dependence; Z80.7 Family history of other malignant neoplasms of lymphoid, hematopoietic and related tissues; Z79.899 Other long term (current) drug therapy
CPT/HCPCS: 26852; J2250; J0330; J1100; J0690; J2405; J2001; J3010; J2795; J2704

== ENCOUNTER 2022-01-28 16:54 | Emergency (ER) | payer OTHER ==
[2022-01-28 17:02] VITALS: TEMP 98.4
[2022-01-28] MEDS ORDERED: NITROGLYCERIN OINT 1 INCH/GM PACKET TOPICAL STA (17:20)
[2022-01-28] MEDS ORDERED: ASPIRIN 81 MG PO STA (17:20)
--- NOTE | 2022-01-28 17:45 | ED ---
Chest Pain HPI - General Chief Complaint: Chest Pain Stated Complaint: Chest pain Time Seen by Provider: 01/28/22 17:03 Source: patient, EMS Mode of arrival: EMS Limitations: no limitations - History of Present Illness Initial Comments: This 51-year-old male presents with a complaint of some chest pain. He describes this as being in the midsternal region and feels like an achiness. It is associated with shortness of breath and diaphoresis. He states that it occurred at around 2 AM this morning. He followed up with this primary care and they sent him to the ER for further evaluation. He denies any radiation of the pain. He states that he is diaphoretic to the point where he wet 2 of his shirts. He denies any known coronary artery disease or previous myocardial infarction. He has followed up with Dr. Thompson from cardiology in regards to his heart was told that he does have an enlarged ventricle. He apparently had a stress test 1-2 years ago which did not show any coronary artery disease. He denies any current leg pain or swelling. He denies any history of DVT or PE. He states that his chest pain will occur at rest. No other complaints or modifying factors. - Related Data Home Medications Medication Instructions Recorded Confirmed Albuterol Sulfate [Proair Hfa] 2 puff INHALATION RT-Q6H PRN 04/04/17 01/28/22 Budesonide/Formoterol Fumarate 1 puff INHALATION RT-BID 04/04/17 01/28/22 [Symbicort 160-4.5 Mcg Inhaler] Albuterol Nebulized [Ventolin 2.5 mg INHALATION RT-Q4H PRN 10/02/20 01/28/22 Nebulized] Ibuprofen [Motrin Ib] 600 mg PO Q8H PRN 10/02/20 01/28/22 Allergies Allergy/AdvReac Type Severity Reaction Status Date / Time No Known Allergies Allergy Verified 01/28/22 18:28 Review of Systems ROS Statement: Those systems with pertinent positive or pertinent negative responses have been documented in the HPI. ROS Other: All systems not noted in ROS Statement are negative. Past Medical History Past Medical History: Asthma, Hypertension Additional Past Medical History / Comment(s): Enlarged Lt ventricle. Rt thumb dislocated. History of Any Multi-Drug Resistant Organisms: None Reported Past Surgical History: Joint Replacement, Orthopedic Surgery Additional Past Surgical History / Comment(s): left shoulder and knee, ANTERIOR Total Rt HIP ARTHROPLASTY 10-27-2018 Past Anesthesia/Blood Transfusion Reactions: Motion Sickness Smoking Status: Former smoker - Past Family History Mother Family Medical History: Cancer Additional Family Medical History / Comment(s): Lymphoma. General Exam - General Exam Comments Initial Comments: GENERAL: The patient is well nourished and well hydrated. VITAL SIGNS: Heart rate, blood pressure, respiratory rate reviewed as recorded in nurse's notes. EYES: Pupils are round and reactive. Extraocular movements are intact. No conjunctival / lid redness or swelling. ENT: No external evidence of injury, swelling, or ecchymosis. Airway is patent. Throat is clear. NECK: Nontender. No swelling or evidence of injury. No subcutaneous emphysema. Trachea is midline. No thyroid mass. HEART: Regular rate and rhythm. Good peripheral pulses. LUNGS/CHEST: Breath sounds clear and equal bilaterally. No rales, rhonchi, or wheezes. No ecchymosis, subcutaneous emphysema, or tenderness. ABDOMEN: Abdomen soft without tenderness. No palpable masses or organomegaly. No peritoneal signs. No abdominal wall swelling or ecchymosis. EXTREMITIES: No extremity tenderness. Normal muscle tone and function. No thoracolumbar tenderness. No calf tenderness or swelling. NEUROLOGIC: Sensation is grossly intact. Cranial nerve exam reveals face is symmetrical, tongue is midline, speech is clear. SKIN: No abrasions or ecchymosis is noted. No induration or masses noted. PSYCHIATRIC: Alert and oriented. Appropriate behavior and judgment. Limitations: no limitations Course Vital Signs 01/28/22 01/28/22 01/28/22 16:56 18:45 19:16 Temperature 98.4 F Pulse Rate 84 78 72 Respiratory 20 18 18 Rate Blood Pressure 179/114 142/90 144/94 O2 Sat by Pulse 96 95 96 Oximetry Chest Pain MDM - MDM The patient was seen and examined. All diagnostics are reviewed. EKG shows a normal sinus rhythm at a rate of 84. There is no acute ST-T wave changes identified. The MO intervals 156, duration is 90, and the QTC intervals 412. Patient did receive 324 modems of aspirin in route via EMS. Nitropaste is ordered. IV is established. He is watched on the nurse monitoring no ectopy is identified. The laboratories all essentially within normal limits except for slight decrease in magnesium. Chest x-ray did not show any acute process. A long discussion was held with patient, , and child in regards to admission versus discharge. It is felt as though he would benefit from admission for further workup including serial troponins, stress test, echocardiogram, and cardiology consult. The patient elects not to be admitted to the hospital despite still having occasional shortness of breath and sweating episodes. Risks and benefits were discussed and ultimately detail including the possibility of myocardial infarction and subsequent . He still like to be discharged AGAINST MEDICAL ADVICE. Return parameters are discussed. He is instructed to take an aspirin daily. He has seen Dr. Thompson past and it is recommended that he call their office in the a.m. to set up an appointment to see him as soon as possible. He is instructed that if he is unable to see the shale miner in the next couple of days and to follow-up with his primary care a s they couldn't get the testing done as well. Patient voices understanding and leaves in no significant distress. Disposition Clinical Impression: Chest pain, Unstable angina, Dyspnea, Left against medical advice Disposition: HOME SELF-CARE Condition: Fair Instructions (If sedation given, give patient instructions): Chest Pain (ED), Dyspnea (ED) Additional Instructions: Please take one aspirin daily. Please follow up with your doctors to obtain a stress test and heart ultrasound. Please return if symptoms do return. Is patient prescribed a controlled substance at d/c from ED?: No Referrals: Michael Cline DO [Primary Care Provider] - 1-2 days Samuel Chino MD [STAFF PHYSICIAN] - 1-2 days Time of Disposition: 19:28
[2022-01-28 17:49] LABS: Basophils # (A) 0.1 k/uL (0-0.2); Basophils % (A) 1 %; Eosinophils # (A) 0.3 k/uL (0-0.7); Eosinophils % (A) 2 %; HCT 51.8 % (39.0-53.0); HGB 16.9 gm/dL (13.0-17.5); Lymphocytes # (A) 1.2 k/uL (1.0-4.8); Lymphocytes % (A) 10 %; MCH 29.8 pg (25.0-35.0); MCHC 32.7 g/dL (31.0-37.0); MCV 91.3 fL (80.0-100.0); Mean Platelet Volume 7.2; Monocytes # (A) 0.8 k/uL (0-1.0); Monocytes % (A) 7 %; Neutrophils # (A) 9.5 k/uL (1.3-7.7); Neutrophils % (A) 79 %; Platelet Count 345 k/uL (150-450); RBC 5.68 m/uL (4.30-5.90); RDW 12.7 % (11.5-15.5)
[2022-01-28 17:59] LABS: ALT 25 U/L (4-49); AST 27 U/L (17-59); African American GFR (CKD) >90 (>60 ml/min/1.73 sqM); Albumin 4.4 g/dL (3.5-5.0); Alkaline Phosphatase 78 U/L (38-126); Anion Gap 14 mmol/L; Blood Urea Nitrogen 10 mg/dL (9-20); Calcium 9.7 mg/dL (8.4-10.2); Carbon Dioxide 26 mmol/L (22-30); Chloride 98 mmol/L (98-107); Glucose 95 mg/dL (74-99); Magnesium 1.5 mg/dL (1.6-2.3); Non-African American GFR(CKD) >90 (>60 ml/min/1.73 sqM); Potassium 4.1 mmol/L (3.5-5.1); Sodium 138 mmol/L (137-145); Total Protein 7.2 g/dL (6.3-8.2)
--- NOTE | 2022-01-28 17:59 | XR ---
EXAMINATION TYPE: XR chest 2V DATE OF EXAM: 01/28/2022 COMPARISON: 10/02/2020 HISTORY: Chest pain TECHNIQUE: FINDINGS: There is no heart failure. There is increased density at the right cardiac border that coul d relate to a diaphragmatic hernia and not changed. There are no hilar masses. Mediastinum is normal. There is 1.8 cm nodular density at the left lung base which is not changed compared to the old chest x-ray of 06/19/2020 and very likely benign. IMPRESSION: No active cardiopulmonary disease. Increased density at the right cardiac border relates to anterior diaphragmatic hernia containing fat evident on the CT scan of 07/10/2020.
[2022-01-28 18:08] LABS: Partial Thromboplastin Time 23.5 sec (22.0-30.0)
[2022-01-28 19:17] VITALS: BP 144/94; PULSE 72; RESP 18
== END 2022-01-28 19:51 | disposition home or self-care (01) ==
LOC: EC 16:54
DX: I20.0 Unstable angina (principal); J45.909 Unspecified asthma, uncomplicated; I10 Essential (primary) hypertension; Z87.891 Personal history of nicotine dependence
CPT/HCPCS: 36415; 71046; 80053; 83735; 83880; 84484; 85025; 85379; 85610; 85730; 99285

== ENCOUNTER → 2022-02-19 | Outpatient (CLI) | payer OTHER ==
--- NOTE | 2022-02-19 17:19 | CT ---
EXAMINATION TYPE: CT chest w con CT DLP: 685 mGycm, Automated exposure control for dose reduction was used. DATE OF EXAM: 02/19/2022 4:28 PM COMPARISON: CTA chest 07/10/2020, chest radiograph 01/28/2022. CLINICAL INDICATION:Male, 51 years old with history of R06.02 SOB R07.89 CHEST PAIN; PHH, chest pain TECHNIQUE: Multiple axial images were obtained through the chest following the administration of 100 cc of Isovue 300. Coronal and sagittal reformats reviewed. FINDINGS: LUNGS/ PLEURA: No pneumothorax, pleural effusion, focal consolidation. Right lower lobe subsegmental atelectasis. Stable left lower lobe 1.6 cm granuloma. No new or enlarging pulmonary nodules. AIRWAY: Patent and unremarkable.. HEART: Size within normal limits. No pericardial effusion. Coronary artery calcifications. MEDIASTINUM: No gross evidence of adenopathy. Persistent anterior right morganii containing fat and t iny mesenteric vessels. VASCULATURE: No aortic aneurysm. MUSCULOSKELETAL: No acute osseous abnormalities SOFT TISSUES/LYMPH NODES: No axillary lymphadenopathy. Bilateral gynecomastia. LOWER NECK: No significant findings. UPPER ABDOMEN: Diffuse low-attenuation to the liver parenchyma. IMPRESSION: 1. No acute thoracic process. 2. Hepatic steatosis.
== END | disposition home or self-care (01) ==
LOC: RADCTMAIN 15:07
PROVIDERS: ATTEND Family Medicine
DX: K76.0 Fatty (change of) liver, not elsewhere classified (principal)
CPT/HCPCS: 71260; Q9967

== ENCOUNTER → 2022-03-08 | Outpatient (CLI) | payer OTHER ==
--- NOTE | 2022-03-11 06:38 | XR ---
EXAMINATION TYPE: XR shoulder complete LT DATE OF EXAM: 03/08/2022 4:41 PM INDICATION: Patient age:Male; 51 years old; Reason for study: [id number] LT SHLD PAIN; COMPARISON: CT chest 02/19/2022, left shoulder radiograph 07/14/2014 TECHNIQUE: The left shoulder was examined in AP, internally rotated and scapular Y projections. . FINDINGS: No evidence of acute osseous pathology, joint dislocation, or soft tissue swelling. The remaining po rtions of the visualized chest are unremarkable. IMPRESSION: No acute osseous pathology.
== END | disposition home or self-care (01) ==
LOC: RADXRYALE 16:26
PROVIDERS: ATTEND Family Medicine
DX: M25.512 Pain in left shoulder (principal)

== ENCOUNTER 2022-12-06 07:45 | Day surgery (SDC) | payer OTHER ==
[2022-12-02 12:30] VITALS: BMI 49.3
--- NOTE | 2022-12-06 07:08 | P.GSHP ---
History of Present Illness H&P Date: 12/06/22 CHIEF COMPLAINT: Ventral hernia HISTORY OF PRESENT ILLNESS: The patient is a 52-year-old male presents with a history of swelling and pain along the abdomen from a hernia of the abdomen. Symptoms have been present for over 6 months. Now he presents for surgical intervention. PAST MEDICAL HISTORY: Please see list. PAST SURGICAL HISTORY: Please see list. MEDICATIONS: Please see list. ALLERGIES: Please see list. SOCIAL HISTORY: No illicit drug use FAMILY HISTORY: No reports of Crohn disease or ulcerative colitis. REVIEW OF ORGAN SYSTEMS: CONSTITUTIONAL: No reports of fevers or chills. No reports of weight loss despite prior attempts. GI: Denies any blood in stools or constipation. PHYSICAL EXAM: VITAL SIGNS: Stable GENERAL: Well-developed pleasant male in no acute distress. HEENT: No scleral icterus. Extraocular movements grossly intact. Moist buccal mucosa. NECK: Supple without lymphadenopathy. CHEST: Unlabored respirations. Equal bilateral excursions. CARDIOVASCULAR: Regular rate and rhythm. Distal 2+ pulses. ABDOMEN: Soft, nondistended. Palpable defect of the abdomen. No peritoneal signs. MUSCULOSKELETAL: No clubbing, cyanosis, or edema. ASSESSMENT: 1. Ventral hernia PLAN: 1. Recommend proceeding with robotic ventral hernia repair with mesh. 2. Benefits and risks of surgical intervention was discussed including possibility of open technique. 3. DVT prophylaxis. 4. Antibiotic prophylaxis. 5. Non narcotic pain management including abdominal wall block described 6. Blood sugar glucose described. 7. Weight loss management described. Past Medical History Past Medical History: Asthma, GERD/Reflux, Hypertension Additional Past Medical History / Comment(s): Wegovy for wt. loss History of Any Multi-Drug Resistant Organisms: None Reported Past Surgical History: Joint Replacement, Orthopedic Surgery Additional Past Surgical History / Comment(s): left shoulder and knee, ANTERIOR Total Rt HIP ARTHROPLASTY 10-27-2018, right thumb surgery with screw placement Past Anesthesia/Blood Transfusion Reactions: No Reported Reaction, Motion Sickness Past Psychological History: No Psychological Hx Reported Smoking Status: Former smoker Past Alcohol Use History: None Reported Additional Past Alcohol Use History / Comment(s): Smoked age 14 on/off, quit 2013 Past Drug Use History: None Reported - Past Family History Mother Family Medical History: Cancer Additional Family Medical History / Comment(s): Lymphoma. Medications and Allergies Home Medications Medication Instructions Recorded Confirmed Type Albuterol Sulfate [Proair Hfa] 2 puff INHALATION RT-Q6H PRN 04/04/17 12/02/22 History Budesonide/Formoterol Fumarate 1 puff INHALATION RT-BID 04/04/17 12/02/22 History [Symbicort 160-4.5 Mcg Inhaler] Albuterol Nebulized [Ventolin 2.5 mg INHALATION RT-Q4H PRN 10/02/20 12/02/22 History Nebulized] Aspirin [Adult Low Dose Aspirin EC] 81 mg PO BID 12/02/22 12/02/22 History Famotidine 20 mg PO DAILY 12/02/22 12/02/22 History Semaglutide [Wegovy] 1.7 mg SQ Q7D 12/02/22 12/02/22 History Terbinafine [LamISIL] 250 mg PO DAILY 12/02/22 12/02/22 History Allergies Allergy/AdvReac Type Severity Reaction Status Date / Time No Known Allergies Allergy Verified 12/02/22 12:16
[~2022-12-06 07:45] MED LIST changes: +ACETAMINOPHEN TAB 500 MG TAB PO PRN; +GABAPENTIN 300 MG CAP PO STA; +HEPARIN SODIUM,PORCINE/PF 5,000 UNIT/0.5 ML SYRINGE SQ PRN; +TAMSULOSIN 0.4 MG CAP.ER.24H PO STA
[2022-12-06] MEDS ORDERED: HYDROmorphone 0.5 MG/0.5 ML SYRINGE IVP PRN (08:28)
[2022-12-06] MEDS ORDERED: LACTATED RINGERS 1,000 ML IV SCH (08:28)
[2022-12-06] MEDS ORDERED: DEXAMETHASONE SOD PHOSPHATE 4 MG/ML 1 ML VIAL IV ONE (08:28)
[2022-12-06] MEDS ORDERED: ONDANSETRON 4 MG/2 ML VIAL IVP ONE (08:28)
[2022-12-06 09:00] LABS: Glucose,Whole Blood 91 mg/dL (70-110)
[2022-12-06] MEDS ORDERED: MELOXICAM 7.5 MG TAB PO ONE (09:00)
[2022-12-06 09:27] LABS: Basophils % (A) 0 %; Eosinophils # (A) 0.6 k/uL (0-0.7); Eosinophils % (A) 5 %; HCT 45.9 % (39.0-53.0); HGB 15.2 gm/dL (13.0-17.5); Lymphocytes # (A) 1.2 k/uL (1.0-4.8); Lymphocytes % (A) 10 %; MCH 29.2 pg (25.0-35.0); MCHC 33.2 g/dL (31.0-37.0); MCV 87.9 fL (80.0-100.0); Mean Platelet Volume 7.7; Monocytes # (A) 0.7 k/uL (0-1.0); Monocytes % (A) 6 %; Neutrophils # (A) 9.2 k/uL (1.3-7.7); Neutrophils % (A) 78 %; Platelet Count 269 k/uL (150-450); RBC 5.22 m/uL (4.30-5.90); RDW 13.7 % (11.5-15.5); WBC 11.7 k/uL (3.8-10.6)
[2022-12-06 09:49] LABS: ALT 25 U/L (4-49); AST 23 U/L (17-59); African American GFR (CKD) >90 (>60 ml/min/1.73 sqM); Albumin 3.4 g/dL (3.5-5.0); Alkaline Phosphatase 74 U/L (38-126); Anion Gap 8 mmol/L; Blood Urea Nitrogen 14 mg/dL (9-20); Calcium 8.8 mg/dL (8.4-10.2); Carbon Dioxide 25 mmol/L (22-30); Chloride 104 mmol/L (98-107); Glucose 97 mg/dL (74-99); Non-African American GFR(CKD) >90 (>60 ml/min/1.73 sqM); Potassium 3.9 mmol/L (3.5-5.1); Sodium 137 mmol/L (137-145); Total Bilirubin 1.1 mg/dL (0.2-1.3); Total Protein 5.8 g/dL (6.3-8.2)
[2022-12-06] MEDS ORDERED: MIDAZOLAM 2 MG/2 ML VIAL IVP ONE (10:21)
[2022-12-06] MEDS ORDERED: MIDAZOLAM 2 MG/2 ML VIAL ONE (10:46)
[2022-12-06] MEDS ORDERED: GLYCOPYRROLATE 0.2 MG/ML 2 ML VIAL ONE (10:46)
[2022-12-06] MEDS ORDERED: SUCCINYLCHOLINE CHLORIDE 200 MG/10 ML VIAL IV ONE (10:46)
[2022-12-06] MEDS ORDERED: NEOSTIGMINE 1 MG/ML 10 ML VIAL ONE (10:46)
[2022-12-06] MEDS ORDERED: ROPIVACAINE 5 MG/ML 30 ML VIAL ONE (10:46)
[2022-12-06] MEDS ORDERED: LIDOCAINE 2% INJ 20 MG/ML (2 ML VIAL) ONE (10:46)
[2022-12-06] MEDS ORDERED: ROCURONIUM 10 MG/ML (5 ML VIAL) IV ONE (10:46)
[2022-12-06] MEDS ORDERED: DEXAMETHASONE SOD PHOSPHATE 4 MG/ML 1 ML VIAL ONE (10:46)
[2022-12-06] MEDS ORDERED: PROPOFOL 10 MG/ML 20 ML VIAL IV ONE (10:46)
[2022-12-06] MEDS ORDERED: fentaNYL (PF) 50 MCG/ML 2 ML AMP ONE (10:46)
[2022-12-06] MEDS ORDERED: LIDOCAINE 0.5%-EPI 1:200,000 50 ML VIAL SQ ONE ×2 (11:16→11:23)
[2022-12-06] MEDS ORDERED: LACTATED RINGERS 1,000 ML IV ONE (11:51)
[2022-12-06 12:46] VITALS: TEMP 97.4
[2022-12-06] MEDS ORDERED: HYDROmorphone 0.5 MG/0.5 ML SYRINGE IVP ONE ×2 (13:04→13:14)
[2022-12-06 13:26] VITALS: RESP 16
--- NOTE | 2022-12-06 13:45 | P.OP ---
Date of Procedure: 12/06/22 Description of Procedure: SURGEON: LINDSEY BRODY MD PREOPERATIVE DIAGNOSES: 1. Initial incarcerated umbilical hernia 2. Morbid obesity due to excess calories, BMI 49.3 3. Diabetes type 2, [id number] 4. Chronic obstructive pulmonary disease 5. Gastroesophageal reflux disease POSTOPERATIVE DIAGNOSES: 1. Initial incarcerated umbilical hernia, 4-cm 2. Morbid obesity due to excess calories, BMI 49.3 3. Diabetes type 2, [id number] 4. Chronic obstructive pulmonary disease 5. Gastroesophageal reflux disease OPERATION: 1. Robotic-assisted da Beto Xi laparoscopic repair of initial incarcerated umbilical hernia with mesh, ventralight ST mesh 11.4 cm Anesthesia: GETA, regional, local Estimated Blood Loss (ml): 5 Pathology: None COMPLICATIONS: None. Operative Findings: 1. Umbilical hernia defect 4 x 3 cm 2. Fascia repaired using #1 V-lock suture INDICATIONS: The patient is a 52-year-old male who presents with incarcerated umbilical hernia with skin changes. Surgical intervention with laparoscopic versus robotic and open techniques were reviewed. Placement of mesh was also reviewed. Benefits and risks were thoroughly described. Informed consent was obtained. DESCRIPTION OF PROCEDURE: The patient was brought into the operating room and laid in supine position. After general induction, the abdomen had been prepped and draped in standard sterile fashion. Ioban draping was also placed. Prior to incision, a timeout protocol was confirmed with surgical team regarding the patient's name including procedures to be performed. The robot was primed prior to the procedure. A field block using local anesthetic was placed along hernia site including the proposed port sites. Initial incision was made with an #11 blade along the left upper quadrant. A 0 degree 5 mm laparoscopic trocar entry was performed and insufflated. Three 8 mm ports were placed along the left lateral abdominal wall under direct localization after exchanging the 5-mm for an 8 mm port. Placements of the ports were 15 cm from the target anatomy and 10 cm apart. An accessory 12 mm port was placed at the left upper quadrant for exchange of mesh including sutures. The [employer] robot was previously primed, prepped and draped then docked from the right side of the patient onto the left side of the patient. I then sat at the robot Groi Xi console where working arms of the robot including Bovie cautery connected to robotic scissors, needle driver operator, and graspers placed by the cleaner assistant. Incarcerated omental contents were found along the umbilicus. The defects were reduced with preperitoneal fat. Umbilical hernia defect 4 x 3 cm was found. The incarcerated contents were reduced as the peritoneal fat was cleaned from the abdominal wall. Next, hemostasis was checked with cautery. The hernia defects were oversewn using #1 nonabsorbable V-lock suture with fascial imbrication x 2. Next, ventralight ST mesh 11.4 cm was placed with the rough side towards the abdominal wall as to cover the umbilical defect. 2-0 VLOC 9 inch sutures were used to fixate the mesh. A final endoscopic imaging was obtained. All instruments and pneumoperitoneum were evacuated from the abdominal cavity. The da Beto Xi robot was undocked from the patient. I re-scrubbed into the case for closure of incisions. The fascia of the 12-mm port was probed and less than 8-mm in size. The incisions were reapproximated using 4-0 Monocryl in an interrupted subcuticular fashion. Liquid glue was applied to the skin after cleansing the skin with normal saline and dilute hydrogen peroxide. An abdominal binder was placed. An umbilical dressing was placed prior. At the end of the procedure, needle, sponge, and instrument count had been verified correct by surgical lead. The patient was taken to the postanesthesia care unit in stable condition. Plan - Discharge Summary Discharge Rx Participant: No New Discharge Prescriptions: New Ibuprofen [Motrin] 600 mg PO Q8HR PRN #30 tab PRN Reason: Pain Acetaminophen Tab [Tylenol Tab] 1,000 mg PO Q6HR PRN #30 tablet PRN Reason: Pain Simethicone [Gas-X] 125 mg PO AC-TID PRN #20 capsule PRN Reason: Pain Continue Albuterol Sulfate [Proair Hfa] 2 puff INHALATION RT-Q6H PRN PRN Reason: Shortness Of Breath Budesonide/Formoterol Fumarate [Symbicort 160-4.5 Mcg Inhaler] 1 puff INHALATION RT-BID Semaglutide [Wegovy] 1.7 mg SQ Q7D Aspirin [Adult Low Dose Aspirin EC] 81 mg PO BID Albuterol Nebulized [Ventolin Nebulized] 2.5 mg INHALATION RT-Q4H PRN PRN Reason: Shortness Of Breath Terbinafine [LamISIL] 250 mg PO DAILY Famotidine 20 mg PO DAILY Discharge Medication List Albuterol Sulfate [Proair Hfa] 2 puff INHALATION RT-Q6H PRN 04/04/17 [History] Budesonide/Formoterol Fumarate [Symbicort 160-4.5 Mcg Inhaler] 1 puff INHALATION RT-BID 04/04/17 [History] Albuterol Nebulized [Ventolin Nebulized] 2.5 mg INHALATION RT-Q4H PRN 10/02/20 [History] Aspirin [Adult Low Dose Aspirin EC] 81 mg PO BID 12/02/22 [History] Famotidine 20 mg PO DAILY 12/02/22 [History] Semaglutide [Wegovy] 1.7 mg SQ Q7D 12/02/22 [History] Terbinafine [LamISIL] 250 mg PO DAILY 12/02/22 [History] Acetaminophen Tab [Tylenol Tab] 1,000 mg PO Q6HR PRN #30 tablet 12/06/22 [Rx] Ibuprofen [Motrin] 600 mg PO Q8HR PRN #30 tab 12/06/22 [Rx] Simethicone [Gas-X] 125 mg PO AC-TID PRN #20 capsule 12/06/22 [Rx] Follow up Appointment(s)/Referral(s): Lindsey Brody MD [STAFF PHYSICIAN] - 12/10/22 (TELEHEALTH - Dr calls you at home between 8am to 8 pm) Patient Instructions/Handouts: *Surgery [facility] - Managing Your Pain After Surgery Without Opioids, Laparoscopic Herniorrhaphy (IP), Abdominal Binder (DC) Activity/Diet/Wound Care/Special Instructions: TELEHEALTH - DR WILL CALL YOU BETWEEN 8 am to 8 pm DO NOT REMOVE UMBILICAL DRESSING. Using antibacterial soap. No lifting over 4 pounds 4 weeks, August 03September shower. No bathtub soaks for 2 weeks, Jul 20 Wear abdominal binder daily for comfort except for showering. Use ice along incisions for today to prevent swelling. Take tylenol, aleve/ibuprofen, simethicone scheduled for 3 days for best pain relief Discharge Disposition: HOME SELF-CARE
[2022-12-06 15:12] VITALS: BP 149/73; PULSE 73
[2022-12-06] MEDS ORDERED: IBUPROFEN 600 MG TAB PO ONE (15:17)
--- NOTE | 2022-12-07 19:56 | P.ANPRN ---
Procedure Note - Anesthesia - Nerve Block Performed Bilateral Rectus Abdominis Single Time Out Performed: Yes Date of Procedure: 12/06/22 Procedure Start Time: : Procedure Stop Time: Location of Patient: PreOp Indication: Acute Post-Operative Pain, Requested by Surgeon Sedation Type: Sedate with meaningful contact maintained Preparation: Sterile Prep Position: Supine Needle Types: Pajunk Needle Gauge: 21 Ultrasound used to visualize needle placement: Yes Ultrasound used to observe medication spread: Yes Blood Aspirated: No Pain Paresthesia on Injection Noted: No Resistance on Injection: Normal Image Stored and Saved: Yes Events: Uneventful and Well Tolerated (Ropivacaine 0.5% 20 mL plus dexamethasone 4 mg given bilaterally)
== END 2022-12-06 15:50 | disposition home or self-care (01) ==
LOC: OR 07:45
PROVIDERS: ATTEND Surgery Plastic and Reconstructive Surgery
DX: K42.0 Umbilical hernia with obstruction, without gangrene (principal); I10 Essential (primary) hypertension; E11.9 Type 2 diabetes mellitus without complications; J44.9 Chronic obstructive pulmonary disease, unspecified; K21.9 Gastro-esophageal reflux disease without esophagitis; E66.01 Morbid (severe) obesity due to excess calories; Z68.42 Body mass index [BMI] 45.0-49.9, adult; G89.18 Other acute postprocedural pain; Z96.641 Presence of right artificial hip joint; Z87.891 Personal history of nicotine dependence; Z80.7 Family history of other malignant neoplasms of lymphoid, hematopoietic and related tissues; Z79.51 Long term (current) use of inhaled steroids; Z79.82 Long term (current) use of aspirin; Z79.899 Other long term (current) drug therapy
CPT/HCPCS: 64488; 80053; 85025; 49594; C1781; J2250; J0330; J1100; J2710; J0690; J2405; J3010; J2795; J2704; J1170; J1644; J2001

== ENCOUNTER 2023-02-19 20:08 | Emergency (ER) | payer OTHER ==
[2023-02-19 20:19] VITALS: BP 107/63; PULSE 90; RESP 18; TEMP 98
[2023-02-19] MEDS ORDERED: LIDOCAINE/EPINEPHR/TETRACAINE 5 ML BOTTLE TOPICAL ONE (21:03)
[2023-02-19] MEDS ORDERED: DIPH,PERTUS(ACELL)TETVAC-LF 0.5 ML VIAL IM ONE (21:03)
--- NOTE | 2023-02-19 22:06 | ED ---
Wound/Laceration HPI - General Chief Complaint: Wound/Laceration Stated Complaint: Leg bleeding Time Seen by Provider: 02/19/23 20:22 Source: patient Mode of arrival: EMS Limitations: no limitations - History of Present Illness Initial Comments: 52-year-old male presenting with chief complaint of laceration to the right leg. Patient states that he thought he saw a tick on his legs so he was trying to remove it with his pocket knife. Patient states that it ended up not being a tick likely a varicose vein. He has been having persistent bleeding ever since. Does not remember when his last tetanus was. No numbness, tingling, weakness, lightheadedness. - Related Data Home Medications Medication Instructions Recorded Confirmed Albuterol Sulfate [Proair Hfa] 2 puff INHALATION RT-Q6H PRN 04/04/17 12/06/22 Budesonide/Formoterol Fumarate 1 puff INHALATION RT-BID 04/04/17 12/06/22 [Symbicort 160-4.5 Mcg Inhaler] Albuterol Nebulized [Ventolin 2.5 mg INHALATION RT-Q4H PRN 10/02/20 12/06/22 Nebulized] Aspirin [Adult Low Dose Aspirin EC] 81 mg PO BID 12/02/22 12/06/22 Famotidine 20 mg PO DAILY 12/02/22 12/06/22 Semaglutide [Wegovy] 1.7 mg SQ Q7D 12/02/22 12/06/22 Terbinafine [LamISIL] 250 mg PO DAILY 12/02/22 12/06/22 Previous Rx's Medication Instructions Recorded Acetaminophen Tab [Tylenol Tab] 1,000 mg PO Q6HR PRN #30 tablet 12/06/22 Ibuprofen [Motrin] 600 mg PO Q8HR PRN #30 tab 12/06/22 Simethicone [Gas-X] 125 mg PO AC-TID PRN #20 capsule 12/06/22 Allergies Allergy/AdvReac Type Severity Reaction Status Date / Time No Known Allergies Allergy Verified 02/19/23 20:14 Review of Systems ROS Statement: Those systems with pertinent positive or pertinent negative responses have been documented in the HPI. ROS Other: All systems not noted in ROS Statement are negative. Past Medical History Past Medical History: Asthma, GERD/Reflux, Hypertension Additional Past Medical History / Comment(s): Wegovy for wt. loss History of Any Multi-Drug Resistant Organisms: None Reported Past Surgical History: Joint Replacement, Orthopedic Surgery Additional Past Surgical History / Comment(s): left shoulder and knee, ANTERIOR Total Rt HIP ARTHROPLASTY 10-27-2018, right thumb surgery with screw placement Past Anesthesia/Blood Transfusion Reactions: No Reported Reaction, Motion Sickness Past Psychological History: No Psychological Hx Reported Smoking Status: Former smoker Past Alcohol Use History: None Reported Past Drug Use History: None Reported - Past Family History Mother Family Medical History: Cancer Additional Family Medical History / Comment(s): Lymphoma. General Exam Limitations: no limitations General appearance: alert, in no apparent distress Head exam: Present: atraumatic, normocephalic, normal inspection Eye exam: Present: normal appearance, EOMI Neck exam: Present: normal inspection, full ROM Respiratory exam: Absent: respiratory distress Neurological exam: Present: alert, oriented X3 Psychiatric exam: Present: normal affect, normal mood Expanded Type of lesion: Present: laceration (Less than 1 cm laceration to the right leg) Course Vital Signs 02/19/23 02/19/23 20:14 23:07 Temperature 98 F Pulse Rate 90 Respiratory 18 18 Rate Blood Pressure 107/63 O2 Sat by Pulse 98 Oximetry Procedures - Laceration Laceration #1 Consent Obtained: verbal consent Indication: laceration Site: lower extremity Size (cm): 1 Description: linear Depth: simple, single layer Anesthetic Used: lidocaine 1%, with epi, without epi Anesthesia Technique: local infiltration Type of Sutures: nylon Size of Sutures: 4-0 Number of Sutures: 2 Patient Tolerated Procedure: well Medical Decision Making - Medical Decision Making Was pt. sent in by a medical professional or institution (, PA, LEAD PERFORMANCE SUPPORT ANALYST, urgent care, hospital, or fci...) When possible be specific @ -No Did you speak to anyone other than the patient for history (EMS, parent, family, police, friend...)? What history was obtained from this source @ -No Did you review nursing and triage notes (agree or disagree)? Why? @ -I reviewed and agree with nursing and triage notes Were old charts reviewed (outside hosp., previous admission, EMS record, old EKG, old radiological studies, urgent care reports/EKG's, fci records)? Report findings @ -No old charts were reviewed Differential Diagnosis (chest pain, altered mental status, abdominal pain women, abdominal pain men, vaginal bleeding, weakness, fever, dyspnea, syncope, headache, dizziness, GI bleed, back pain, seizure, CVA, palpatations, mental health, musculoskeletal)? @ -not applicable EKG interpreted by me (3pts min.). @ -As above X-rays interpreted by me (1pt min.). @ -None done CT interpreted by me (1pt min.). @ -None done U/S interpreted by me (1pt. min.). @ -None done What testing was considered but not performed or refused? (CT, X-rays, U/S, labs)? Why? @ -None What meds were considered but not given or refused? Why? @ -None Did you discuss the management of the patient with other professionals (professionals i.e. , PA, LEAD PERFORMANCE SUPPORT ANALYST, lab, RT, psych nurse, social welfare administrator, acid correction hand, teacher, learning officer, case monitor)? Give summary @ -No Was smoking cessation discussed for >3mins.? @ -No Was critical care preformed (if so, how long)? @ -No Were there social determinants of health that impacted care today? How? (Homelessness, low income, unemployed, alcoholism, drug addiction, transp ortation, low edu. Level, literacy, decrease access to med. care, snf, rehab)? @ -No Was there de-escalation of care discussed even if they declined (Discuss DNR or withdrawal of care, Hospice)? DNR status @ -No What co-morbidities impacted this encounter? (DM, HTN, Smoking, COPD, CAD, Cancer, CVA, ARF, Chemo, Hep., AIDS, mental health diagnosis, sleep apnea, morbid obesity)? @ -None Was patient admitted / discharged? Hospital course, mention meds given and route, prescriptions, significant lab abnormalities, going to OR and other pertinent info. @ -52-year-old male presenting with chief complaint of laceration to the right leg. Patient tried to remove what he thought was a tight earlier today with his knife. Patient has had persistent bleeding ever since. Let solution was applied and suture was placed. The patient stood up he had continued bleeding. Lidocaine with epi was applied other suture was applied. Bleeding was somewhat controlled. Educated on wound care and signs of infection. Follow-up with PCP. Report back to ER with any new or worsening symptoms. Discussed return parameters and answered all questions. Patient conveyed verbal understanding and agreed to the plan. I discussed this case in detail with my attending Dr. Le Undiagnosed new problem with uncertain prognosis? @ -No Drug Therapy requiring intensive monitoring for toxicity (Heparin, Nitro, Insulin, Cardizem)? @ -No Were any procedures done? @ -Laceration repair Diagnosis/symptom? @ -laceration Acute, or Chronic, or Acute on Chronic? @ -Acute Uncomplicated (without systemic symptoms) or Complicated (systemic symptoms)? @ -Uncomplicated Side effects of treatment? @ -No Exacerbation, Progression, or Severe Exacerbation? @ -No Poses a threat to life or bodily function? How? (Chest pain, USA, IA, pneumonia, PE, COPD, DKA, ARF, appy, cholecystitis, CVA, Diverticulitis, Homicidal, Suicidal, threat to staff... and all critical care pts) @ -No Disposition Clinical Impression: Laceration Disposition: HOME SELF-CARE Condition: Good Instructions (If sedation given, give patient instructions): Care For Your Stitches (ED), Laceration (ED) Additional Instructions: Follow-up with PCP. Report back to ER if any new or worsening symptoms. Sutures may be removed in 10-14 days. Is patient prescribed a controlled substance at d/c from ED?: No Referrals: Michael Cline DO [Primary Care Provider] - 1-2 days Time of Disposition: 23:03
[2023-02-19] MEDS ORDERED: LIDOCAINE 1%-EPI 1:100,000 50 ML VIAL SQ STA (22:10)
== END 2023-02-19 23:08 | disposition home or self-care (01) ==
LOC: EC 20:08
DX: S81.811A Laceration without foreign body, right lower leg, initial encounter (principal); J45.909 Unspecified asthma, uncomplicated; K21.9 Gastro-esophageal reflux disease without esophagitis; I10 Essential (primary) hypertension; Z87.891 Personal history of nicotine dependence; Z79.82 Long term (current) use of aspirin; Z79.899 Other long term (current) drug therapy; Z23 Encounter for immunization; Z79.51 Long term (current) use of inhaled steroids; W26.0XXA Contact with knife, initial encounter
CPT/HCPCS: 12001; 90471; 90715; 99283

== ENCOUNTER 2024-08-06 11:52 | Day surgery (SDC) | payer BC ==
[2024-08-04 14:13] VITALS: BMI 53.7
[~2024-08-06 11:52] MED LIST changes: -ACETAMINOPHEN TAB 500 MG TAB PO PRN; -GABAPENTIN 300 MG CAP PO STA; -HEPARIN SODIUM,PORCINE/PF 5,000 UNIT/0.5 ML SYRINGE SQ PRN; +LACTATED RINGERS 1,000 ML IV SCH; -TAMSULOSIN 0.4 MG CAP.ER.24H PO STA; -ceFAZolin 3 GM in SODIUM CHLORIDE 0.9% 100 ML IVPB PRN
[2024-08-06] MEDS ORDERED: SODIUM CHLORIDE 0.9% 1,000 ML IV SCH (12:00)
[2024-08-06 12:33] VITALS: TEMP 97
[2024-08-06 12:35] LABS: Glucose,Whole Blood 96 mg/dL (70-110)
[2024-08-06] MEDS: IV FLUID CONTINUATION 500 ML IV ONE (12:40)
[2024-08-06] MEDS ORDERED: LIDOCAINE 1% INJ 10MG/ML (20 ML MDV) ONE (12:55)
[2024-08-06] MEDS ORDERED: MIDAZOLAM 2 MG/2 ML VIAL ONE (12:55)
[2024-08-06] MEDS ORDERED: PROPOFOL 10 MG/ML 20 ML VIAL IV ONE (12:55)
[2024-08-06] MEDS ORDERED: BENZOCAINE SPRAY 1 EACH MM ONE (13:00)
[2024-08-06 13:01] LABS: African American GFR (CKD) >90 (>60 ml/min/1.73 sqM); Anion Gap 3 mmol/L; Blood Urea Nitrogen 14 mg/dL (9-20); Calcium 9.4 mg/dL (8.4-10.2); Carbon Dioxide 26 mmol/L (22-30); Chloride 103 mmol/L (98-107); Glucose 104 mg/dL (74-99); Non-African American GFR(CKD) >90 (>60 ml/min/1.73 sqM); Potassium 4.6 mmol/L (3.5-5.1); Sodium 132 mmol/L (137-145)
[2024-08-06 14:17] VITALS: RESP 18
--- NOTE | 2024-08-06 14:34 | P.PCN ---
Date of Procedure: 08/06/24 Operative Findings: TRANSESOPHAGEAL ECHOCARDIOGRAM ANTIQUE AUTO MUSEUM MAINTENANCE WORKER: EBONY DOLL MD, RPVI INDICATION: Rule out intracardiac thrombus before cardioversion SEDATION: Conscious sedation COMPLICATION: None LEVEL OF SEDATION The procedure was performed under general anesthesia with SCALE ATTENDANT in the room CONCLUSION: 1. The study was performed very quickly because of the patient desaturation 2. Mildly impaired LV function with EF at 45% 3. Intact left atrial appendage 4. No significant valvular abnormalities
--- NOTE | 2024-08-06 14:35 | P.PCN ---
Date of Procedure: 08/06/24 Operative Findings: Cardioversion Report Performing physician Samuel Chino M.D. Procedure performed Successful cardioversion of atrial fibrillation to normal sinus mechanism using 120 J at first attempt Indication Symptomatic atrial fibrillation Complication None Level of sedation The procedure was performed under deep sedation using propofol with FIRE PROTECTION ENGINEER in the room Procedure description After obtaining an informed consent the patient was brought to the recovery room. Sedation was introduced using propofol with FIRE PROTECTION ENGINEER in the room. Subsequently the patient cardioverted from atrial fibrillation to normal sinus mechanism using 200 J and first attempt Conclusion Successful cardioversion of atrial fibrillation to normal sinus mechanism using 200 J Postprocedure management Continue the current medical regimen Continue oral anticoagulation Follow-up with the patient
[2024-08-06 14:42] VITALS: BP 96/63; PULSE 55
== END 2024-08-06 14:59 | disposition home or self-care (01) ==
LOC: OR 11:52
PROVIDERS: ATTEND Internal Medicine Interventional Cardiology
DX: I48.0 Paroxysmal atrial fibrillation (principal); I10 Essential (primary) hypertension; E11.9 Type 2 diabetes mellitus without complications; E78.5 Hyperlipidemia, unspecified; I08.3 Combined rheumatic disorders of mitral, aortic and tricuspid valves; J45.909 Unspecified asthma, uncomplicated; K21.9 Gastro-esophageal reflux disease without esophagitis; Z79.01 Long term (current) use of anticoagulants; Z79.85 Long-term (current) use of injectable non-insulin antidiabetic drugs; Z79.51 Long term (current) use of inhaled steroids; Z79.899 Other long term (current) drug therapy; Z87.891 Personal history of nicotine dependence; Z82.49 Family history of ischemic heart disease and other diseases of the circulatory system
CPT/HCPCS: 93312; 93320; 93325; 92960; 80048; J2250; J2003; J2704